=== PATIENT | male | born 1945 | race Caucasian/White ===

== ENCOUNTER → 2023-05-14 10:54 | Outpatient (REF) | payer MEDICARE, OTHER, SELFPAY | LOC: DHCBS MAIN 10:54 | PROVIDERS: ATTENDING PHYSICIAN Internal Medicine Cardiovascular Disease; FAMILY PHYSICIAN Family Medicine | DX: I42.8 Other cardiomyopathies (principal) | CPT/HCPCS: 93306 ==

== ENCOUNTER 2025-01-02 15:17 | Inpatient (IN) | payer MEDICARE, OTHER, SELFPAY ==
[2025-01-02] VITALS (7 sets, daily range): BP systolic 114–143; BP diastolic 65–83; BMI 26.1; BMI 25.2
[2025-01-02 11:03] LABS: Hematocrit 38.3 % (39.0-52.0); Hemoglobin 12.9 g/dL (13.0-18.0); Mean Corp Hgb Conc. 33.7 g/dL (33.0-37.0); Mean Corpuscular Volume 89.1 fL (80.0-94.0); Nucleated Red Blood Cells % 0 % (-); Platelet Count 145 10^3/uL (130-400); Red Cell Dist. Width 13.2 % (11.5-14.5)
[2025-01-02 11:04] LABS: Urine Character Clear (Clear)
--- NOTE | 2025-01-02 11:04 | ED.GENMED ---
History of Present Illness
<Ana Maria Mccarthy PA-C - Last Filed: 01/02/25 16:01>
General
Chief Complaint: Abdominal Symptoms
Source: patient
Exam Limitations: none
Time Seen by Provider: 01/02/25 10:36
History of Present Illness
History of Present Illness:
79yoM with a history of coronary artery disease, CHF, hypertension, hyperlipidemia, and CKD presenting for evaluation of decreased urination. Patient has been having 'digestive issues' for the past year with diarrhea, gas, and intermittent
abdominal discomfort. He has lost about 15 pounds in the past few months. He has been seen by [facility] gastroenterology for this and has a colonoscopy scheduled in February. He takes Imodium every other day which does seem to help. Over the
past 24 hours, patient notes decreased urination. He reports having the urge to urinate but is only able to urinate in small amounts at a time. He is also having associated dysuria. He has no abdominal pain currently. He denies any fevers,
chills, flank pain, vomiting, hematuria, hematochezia.
Phy Exam
<Ana Maria Mccarthy PA-C - Last Filed: 01/02/25 16:01>
General Physical Exam
General Presentation: well appearing and no apparent distress
General Skin: warm and dry
General Habitus: normal and elderly
General Mental: alert
ENT Exam
ENT Exam: normocephalic
Cardiovascular Exam
Cardiovascular Exam: regular rate/rhythm
Pulmonary Exam
Pulmonary Exam: lungs clear, no respiratory distress, no rales, no crackles, no rhonchi and no wheezing
Gastrointestinal Exam
Gastrointestinal Exam: non tender, soft and non distended
Neurological Exam
Neurological Exam: alert
[place] Coma Scale
Eye Opening: Spontaneous
Verbal Response: Oriented
Motor Response: Obeys Commands
GCS Total Score: 15
Skin Exam
Skin Exam: normal color and warm/dry
Psychiatric Exam
Psychiatric Exam: normal mood/affect
Course
<Ana Maria Mccarthy PA-C - Last Filed: 01/02/25 16:01>
Orders/Labs/Results
Orders:
Orders
01/02/25 10:53
Complete Blood Count/With Diff Urgent
Comprehensive Metabolic Panel Urgent
Magnesium Urgent
TSH Urgent
Comment: ADD ON
Urinalysis Reflex To Culture Urgent
Date Specimen was Collected: 01/02/25
Time Specimen was Collected: 10:50
Urine Microscopic Reflex Cult Urgent
Urine Culture Urgent
LUNA Source: U
Specimen Description:
Date Specimen was Collected: 01/02/25
Time Specimen was Collected: 10:50
01/02/25 11:19
CT Abd/pelvis W Iv Cont Urgent
Comment:
Reason For Exam: UTI symptoms, SIRS criteria, diarrhea
01/02/25 11:20
Add On- LAB Urgent
Tests Added?: TSH
Lactic Acid Urgent
01/02/25 13:23
Piperacillin/Tazo 4.5 Gram [Zosyn] 4.5 gram in 100 ml IV NOW
01/02/25 13:55
Blood Culture Q30M
LUNA Source: Blood/Venous
Specimen Description:
01/02/25 14:22
Admit/Transfer Patient As Directed
Co-Sign Provider:
Level of Care: Inpatient admission
Assign to:: Telemetry
Physician / Group: feli abernathy
Diagnosis: sepsis divertic w/ perf/abcess, cystitis, uti, hepatic abs vs mass
Reason for Telemetry: Arrhythmia
Date to Stop Telemetry: 01/05/25
Time to Stop Telemetry: 11:00
Reason for Hospitalization: sepsis divertic w/ perf/abcess, cystitis, uti, hepatic abs vs mass
Expected length of stay greater than two midnights?: Yes
ELOS- Estimated Length of Stay in days: 5
I certify the patient meets the requirements for IP care: Yes
SURGICAL CONSULT Routine
Consulting Provider: Ricardo Smith
Was physician already notified: Yes
Reason for consult: Perfect diverticulitis with abscess/[place] vesicular fistula/cystitis/UTI
01/02/25 14:24
Blood Culture Q30M
LUNA Source: Blood/Venous
Specimen Description:
01/02/25 14:25
Code Status As Directed
Resuscitation Status: Full Code
01/02/25 14:28
PRN Pain Medication Management As Directed
May give lesser potent ordered pain med per pt: Yes
preference::
Protocol:: Medication orders for pain may be administered in a
manner that supports deferring to patient preference
when the pt is:
- Requesting an ordered lesser potent pain medication.
Least to most potent pain medications are defined
as: acetaminophen < NSAID < tramadol < opioids
(morphine, oxycodone, hydromorphone).
- Requesting a lesser dose of the same medication IF
ORDERED.
- Requesting a less intrusive route of administration
if both routes are prescribed by the provider (PO <
IV).
01/02/25 14:36
INFECTIOUS DISEASE CONSULT Routine
Consulting Provider: Geno Cotton
Was physician already notified: Yes
Reason for consult: divetic w/ perf/abces/ fistula, uti cystitis
01/05/25 11:00
DC Protocol for Telemetry ONCE
Abnormal Lab Results
01/02/25
10:53
WBC 21.4 H 10^3/uL
(4.8-10.8)
RBC 4.30 L 10^6/uL
(4.70-6.10)
Hgb 12.9 L g/dL
(13.0-18.0)
Hct 38.3 L %
(39.0-52.0)
MPV 12.6 H fL
(7.4-10.4)
Abs Immat Gran (auto) 0.1 H 10^3/uL
(0-0.05)
Absolute Neuts (auto) 18.1 H 10^3/uL
(1.4-6.5)
Absolute Monos (auto) 1.8 H 10^3/uL
(0.1-0.6)
Neutrophils % 84.2 H %
(42.2-75.2)
Lymphocytes % 6.1 L %
(20.5-51.1)
Sodium 134 L mmol/L
(135-145)
Glucose 145 H mg/dl
(70-99)
Total Bilirubin 1.7 H mg/dl
(0.2-1.3)
Ur Occult Blood Reflex 4+ A
(Negative)
Leukocyte Esterase Rfl 3+ A
(Negative)
Urine RBC 40-50 A /HPF
(0-2)
Urine WBC (Reflex) >100 A /HPF
(0-5)
Urine Bacteria (Reflex) Moderate A
(Negative)
Urine Albumin (Reflex) 3+ A
(Neg - Trace)
01/02/25 10:53
01/02/25 10:53
Vital Signs
Initial and Last Documented VS:
Initial Vital Signs
Temp Pulse Resp BP Pulse Ox
98.2 F 102 16 143/83 97
01/02/25 10:12 01/02/25 10:12 01/02/25 10:12 01/02/25 10:12 01/02/25 10:12
Last Documented Vital Signs
Temp Pulse Resp BP Pulse Ox
98.8 F 65 18 132/78 99
01/02/25 15:29 01/02/25 15:29 01/02/25 15:29 01/02/25 15:29 01/02/25 15:29
<Luis Ruiz, DO - Last Filed: 01/02/25 15:43>
Orders/Labs/Results
Orders:
Orders
01/02/25 10:53
Complete Blood Count/With Diff Urgent
Comprehensive Metabolic Panel Urgent
Magnesium Urgent
TSH Urgent
Comment: ADD ON
Urinalysis Reflex To Culture Urgent
Date Specimen was Collected: 01/02/25
Time Specimen was Collected: 10:50
Urine Microscopic Reflex Cult Urgent
Urine Culture Urgent
LUNA Source: U
Specimen Description:
Date Specimen was Collected: 01/02/25
Time Specimen was Collected: 10:50
01/02/25 11:19
CT Abd/pelvis W Iv Cont Urgent
Comment:
Reason For Exam: UTI symptoms, SIRS criteria, diarrhea
01/02/25 11:20
Add On- LAB Urgent
Tests Added?: TSH
Lactic Acid Urgent
01/02/25 13:23
Piperacillin/Tazo 4.5 Gram [Zosyn] 4.5 gram in 100 ml IV NOW
01/02/25 13:55
Blood Culture Q30M
LUNA Source: Blood/Venous
Specimen Description:
01/02/25 14:22
Admit/Transfer Patient As Directed
Co-Sign Provider:
Level of Care: Inpatient admission
Assign to:: Telemetry
Physician / Group: feli abernathy
Diagnosis: sepsis divertic w/ perf/abcess, cystitis, uti, hepatic abs vs mass
Reason for Telemetry: Arrhythmia
Date to Stop Telemetry: 01/05/25
Time to Stop Telemetry: 11:00
Reason for Hospitalization: sepsis divertic w/ perf/abcess, cystitis, uti, hepatic abs vs mass
Expected length of stay greater than two midnights?: Yes
ELOS- Estimated Length of Stay in days: 5
I certify the patient meets the requirements for IP care: Yes
SURGICAL CONSULT Routine
Consulting Provider: Ricardo Smith
Was physician already notified: Yes
Reason for consult: Perfect diverticulitis with abscess/[place] vesicular fistula/cystitis/UTI
01/02/25 14:24
Blood Culture Q30M
LUNA Source: Blood/Venous
Specimen Description:
01/02/25 14:25
Code Status As Directed
Resuscitation Status: Full Code
01/02/25 14:28
PRN Pain Medication Management As Directed
May give lesser potent ordered pain med per pt: Yes
preference::
Protocol:: Medication orders for pain may be administered in a
manner that supports deferring to patient preference
when the pt is:
- Requesting an ordered lesser potent pain medication.
Least to most potent pain medications are defined
as: acetaminophen < NSAID < tramadol < opioids
(morphine, oxycodone, hydromorphone).
- Requesting a lesser dose of the same medication IF
ORDERED.
- Requesting a less intrusive route of administration
if both routes are prescribed by the provider (PO <
IV).
01/02/25 14:36
INFECTIOUS DISEASE CONSULT Routine
Consulting Provider: Geno Cotton
Was physician already notified: Yes
Reason for consult: divetic w/ perf/abces/ fistula, uti cystitis
01/05/25 11:00
DC Protocol for Telemetry ONCE
Abnormal Lab Results
01/02/25
10:53
WBC 21.4 H 10^3/uL
(4.8-10.8)
RBC 4.30 L 10^6/uL
(4.70-6.10)
Hgb 12.9 L g/dL
(13.0-18.0)
Hct 38.3 L %
(39.0-52.0)
MPV 12.6 H fL
(7.4-10.4)
Abs Immat Gran (auto) 0.1 H 10^3/uL
(0-0.05)
Absolute Neuts (auto) 18.1 H 10^3/uL
(1.4-6.5)
Absolute Monos (auto) 1.8 H 10^3/uL
(0.1-0.6)
Neutrophils % 84.2 H %
(42.2-75.2)
Lymphocytes % 6.1 L %
(20.5-51.1)
Sodium 134 L mmol/L
(135-145)
Glucose 145 H mg/dl
(70-99)
Total Bilirubin 1.7 H mg/dl
(0.2-1.3)
Ur Occult Blood Reflex 4+ A
(Negative)
Leukocyte Esterase Rfl 3+ A
(Negative)
Urine RBC 40-50 A /HPF
(0-2)
Urine WBC (Reflex) >100 A /HPF
(0-5)
Urine Bacteria (Reflex) Moderate A
(Negative)
Urine Albumin (Reflex) 3+ A
(Neg - Trace)
01/02/25 10:53
01/02/25 10:53
Vital Signs
Initial and Last Documented VS:
Initial Vital Signs
Temp Pulse Resp BP Pulse Ox
98.2 F 102 16 143/83 97
01/02/25 10:12 01/02/25 10:12 01/02/25 10:12 01/02/25 10:12 01/02/25 10:12
Last Documented Vital Signs
Temp Pulse Resp BP Pulse Ox
98.8 F 65 18 132/78 99
01/02/25 15:29 01/02/25 15:29 01/02/25 15:29 01/02/25 15:29 01/02/25 15:29
<Ana Maria Mccarthy PA-C - Last Filed: 01/02/25 16:01>
MDM/Problems Addressed
Differential Diagnosis Includes:
79yoM here with urinary urgency and decreased urination x 24 hours. Occurs in context of diarrhea/abdominal symptoms x 1 year with weight loss. HR 102 on arrival. Temp normal. He is well appearing in no distress. No signs of peritonitis on abdominal
exam. Differential diagnosis includes but is not limited to: UTI, kidney stone, prostatitis, urinary retention, DE, dehydration
Initial ED plan: Check CBC, CMP, and UA. Bladder scan done by nursing staff prior to initial exam is 45cc.
<Ana Maria Mccarthy PA-C - Last Filed: 01/02/25 16:01>
*Pulse Oximetry
SaO2: 97
Oxygen Mode of Delivery: Room air
Patient hypoxic: no
*Critical Care Note
Total Time (30-74mins, 75-104mins- exclusive of procedures): Not Applicable
<Ana Maria Mccarthy PA-C - Last Filed: 01/02/25 16:01>
Update Note
Update Note:
Labs reveal a significant leukocytosis with a WBC of 21.4 with a left shift. UA with >100 WBC and moderate bacteria. Given degree of leukocytosis, CT abdomen added. CT shows findings suggestive of focally perforated sigmoid diverticulitis with
developing abscess. Abscess extends into bladder with evidence of developing colovesicular fistula. There are also multiple hepatic lesions which may be abscesses vs. metastases and MRI is recommended. Blood cultures and IV Zosyn ordered.
Patient admitted for further management.
ED Attending Note
<Ana Maria Mccarthy PA-C - Last Filed: 01/02/25 16:01>
-
Portions of this chart may have been created with voice recognition software.� Occasional wrong word or��sound alike� substitutions may have occurred due to the inherent limitations of voice recognition software.
<Luis Ruiz, DO - Last Filed: 01/02/25 15:43>
ED Attending Note
Patient seen and examined by attending physician: Yes
ED Attending Note:
I have reviewed and with history and treatment plan. My exam revealed
79-year-old male in minimal distress. Abdomen tender to palpation. CT scan revealing sigmoid diverticulitis with developing pericolonic abscess measuring 4.8 cm. 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 IV Zosyn ordered. Colorectal surgery consulted.
Discharge Plan
Departure
Patient Disposition: Admit
Date of Disposition: 01/02/25
Time of Disposition: 13:41
Presentation/result/management discussed w/ accepting MD/DO: Hospitalist
Discharge Problem:
Diverticulitis of intestine with abscess
Interventions
Interventions:
*Risk Screen - Suicide Last Done: 01/02/25 10:12
*General Assessment Last Done: 01/02/25 11:11
*Neglect/Abuse Screening Last Done: 01/02/25 10:12
*Nursing Disposition Last Done: 01/02/25 15:29
WD-Nqulak-Aznbpifkey Assessment Last Done: 01/02/25 11:11
Discharge Date and Time
Discharge Date/Time: 01/02/25 15:44
[2025-01-02 11:17] LABS: Urine Squamous Cell 0-2 /LPF (Few); Urine White Cell >100 /HPF (0-5)
[2025-01-02 11:18] LABS: ALT (SGPT) 14 U/L (0-50); AST (SGOT) 19 U/L (17-59); Albumin 3.9 g/dl (3.5-5.0); Alkaline Phosphatase 99 U/L (38-126); Blood Urea Nitrogen 14 mg/dl (9-20); Calcium 9.5 mg/dl (8.4-10.2); Carbon Dioxide 23 mmol/L (22-30); Chloride 103 mmol/L (98-107); Estimated Creatinine Clearance -6 ml/min; Glucose 145 mg/dl (70-99); Magnesium 1.8 mg/dl (1.6-2.3); Potassium 3.8 mmol/L (3.5-5.1); Sodium 134 mmol/L (135-145); Total Protein 7.2 g/dl (6.3-8.2); Urine Red Blood Cell 40-50 /HPF (0-2); eGFR > 60.00
[2025-01-02 12:44] LABS: TSH 1.44 uIU/ml (0.47-4.68)
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
[2025-01-02] MEDS: ZOSYN 100 IV (14:26)
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
--- NOTE | 2025-01-02 14:40 | CON.ID ---
Consultation
-
Date/Time Consultation Requested: January 02, 2025
Date/Time Consultation Performed: January 02, 2025
Requesting Provider: STELLA Hussein
Performing Provider: Dr. Geno Cotton
Reason for Consultation: Perforated diverticulitis
Chief Complaint / Past History
Chief Complaint
painful urination
History of Present Illness
79 year old male with history of nonischemic cardiomyopathy status post ICD placement, hypothyroidism who presents to the ER today due to dysuria, urinary urgency, minimal urine output. Patient reports about 6-month or longer history of GI issues
with passing gas and loose stools, but mostly gas. Per daughter for the past 3 months, he has not had formed bowel movements. He will pass gas and then spurts of stool. No abdominal pain except for the past week where he has discomfort lower
abdomen. No blood in the stool. He has lost about 10 pounds unintentionally over the past 3 months. He is scheduled for a colonoscopy next month at [facility]. Of note patient never had colon cancer screening. For the past week, he developed
dysuria and urinary urgency. Over the past 24 hours, urine output minimal despite the urinary urgency. He denies foamy urine. No stool particulates in the urine. No fevers or chills. In ED, white count 21.4. Urine analysis 3+ leukocyte
esterase, more than 100 red blood cells. CAT scan abdomen and pelvis shows focally perforated sigmoid diverticulitis with 4.8 cm abscess extending into the urinary bladder concerning for developing colovesicular fistula, multiple hypodense hepatic
lesions, abscesses versus metastases. He is currently on Zosyn. 8
Past History
Additional Past Medical History:
Hypothyroidism
Nonischemic cardiomyopathy s/p ICD placement
Dyslipidemia
Vertebral compression fracture
CKD2
Back surgery
Right knee fracute repair
Allergy History:
No Known Allergies Allergy (Verified 01/02/25 10:12)
Medications Reviewed: Yes
Current Antibiotics:
Zosyn d1
Social History
Tobacco: Former Smoker
Alcohol: Former
Drug: None
Review of Systems
Review of Systems
General: Change in Appetite; Negative Fever or Chills
HEENT: Negative Sinus Problems, Headache or Pharyngitis
Cardiovascular: Negative Chest Pain or Dyspnea
Respiratory: Negative Dyspnea or Cough
Gasteroenterology: Weight Loss; Negative Nausea or Vomiting
Genital / Urological: Dysuria; Negative Hematuria or Flank Pain
Endocrine: Weakness and Fatigue
Neurological: Negative Dizziness
All systems: All other systems were reviewed and were negative
Vital Signs
Temp Pulse Resp BP Pulse Ox
98.2 F 102 16 120/67 97
01/02/25 10:12 01/02/25 10:12 01/02/25 10:12 01/02/25 11:00 01/02/25 11:05
Physical Exam
Physical Exam
Constitutional: No Acute Distress and Comfortable
Eyes: No Conjunctival Hemorrhage and Sclera Anicteric
Cardiovascular: Regular Rate, S1/S2 and Other (ICD no erythema/induration)
Pulmonary: Clear
Gastrointestinal: Soft, Non Tender, Non Distended and Normal Bowel Sounds
Genito-Urinary: Negative Suprapubic Tenderness or CVA Tenderness
Extremities: Negative Edema
Neurological: AO x 3
Lab / Diagnostic Study Results
01/02/25 10:53
01/02/25 10:53
Abs Immat Gran (auto) 0.1 10^3/uL (0-0.05) H 01/02/25 10:53
Absolute Neuts (auto) 18.1 10^3/uL (1.4-6.5) H 01/02/25 10:53
Absolute Lymphs (auto) 1.3 10^3/uL (1.2-3.4) 01/02/25 10:53
Absolute Monos (auto) 1.8 10^3/uL (0.1-0.6) H 01/02/25 10:53
Absolute Basos (auto) 0.1 10^3/uL (0-0.2) 01/02/25 10:53
Immature Gran % 0.4 % (0-0.5) 01/02/25 10:53
Neutrophils % 84.2 % (42.2-75.2) H 01/02/25 10:53
Lymphocytes % 6.1 % (20.5-51.1) L 01/02/25 10:53
Monocytes % 8.6 % (1.7-9.3) 01/02/25 10:53
Eosinophils % 0.2 % (0-6) 01/02/25 10:53
Basophils % 0.5 % (0-2) 01/02/25 10:53
Lactic Acid 1.1 mmol/L (0.7-2.0) 01/02/25 11:20
Ur Squamous Epith Cells 0-2 /LPF (Few) 01/02/25 10:53
Microbiology Results
Micro:
01/02/25 14:24 Blood Culture - Pending
Blood/Venous
01/02/25 13:55 Blood Culture - Pending
Blood/Venous
01/02/25 10:53 Urine Culture - Pending
Urine
01/02/25 CT a/p: Findings of focally perforated sigmoid diverticulitis with a developing pericolonic abscess measuring up to 4.8 cm. This abscess extends into the superior wall of the urinary bladder and likely represents a developing colovesicular
fistula with findings of cystitis. There are multiple ill-defined, mildly hypodense hepatic lesions which measure up to 2.8 cm in the superior aspect of the right hepatic lobe. Given the above findings of diverticulitis these represent developing
hepatic abscesses, however metastasis are also possible.
Assessment / Plan
# Perforated sigmoid with abscess
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
# Leukocytosis
# Hepatic lesions -?abscesses vs metastasis - pt never had colon cancer screening
# Weight loss, 6 month h/o GI symptoms passing gas and loose stools
- For MRI abd per hospitalist
- Consider biopsy liver lesions
- Await blood cx and ucx.
- Continue Zosyn.
Conditions present on admission:
Hypothyroidism
Nonischemic cardiomyopathy s/p ICD placement
Dyslipidemia
Vertebral compression fracture
CKD2
Back surgery
Right knee fracture repair
--- NOTE | 2025-01-02 15:50 | PTCARENOTE ---
01/02- Patient transferred and oriented to unit without issue. AAOX3, Independent. Patient denies any pain or distress at this time. Telemetry #44- currently NSR with HR=72. Skin CDI. Abd distended, firm but not tender. +BSX4. Educated patient on
Diverticulitis and Complicated Diverticulitis as well as questions for the Physicians during his stay. He verbalized understanding. Denies any current needs.
[2025-01-02] MEDS: NSS 1000 IV (16:25)
[2025-01-02] MEDS: HEPARIN 5000 UNITS SC (20:23)
[2025-01-02] MEDS: ZOSYN 50 IV (20:25)
[2025-01-02] MEDS: COREG 6.25 MG PO (20:25)
[2025-01-03] MEDS: ZOSYN 50 IV ×4 (01:39→20:01)
[2025-01-03 03:00] VITALS: BP 108/69
[2025-01-03 04:42] VITALS: BMI 26.1
[2025-01-03] MEDS: SYNTHROID 50 MCG PO (05:48)
[2025-01-03 05:54] VITALS: BMI 25.3
[2025-01-03 07:00] VITALS: BP 116/69
[2025-01-03] MEDS: PROTONIX 40 MG PO (08:12)
[2025-01-03] MEDS: HEPARIN 5000 UNITS SC ×2 (08:13→19:57)
[2025-01-03] MEDS: COREG 6.25 MG PO ×2 (08:32→20:00)
--- NOTE | 2025-01-03 08:40 | W.PN.CRS1 ---
Today's Communication / Plan
-
MRI to look at liver.
Assessment/Plan
-
Sigmoid diverticulitis with associated abscess, question of fistula to bladder, and liver lesions of unclear etiology. Malignancy a possibility (CEA pending).
1. MRI today to evaluate liver lesions.
2. continue npo for now as patient admits to nausea/queasiness.
3. antibiotics per ID.
4. today's bloodwork pendng.
Subjective Data
Subjective Data
Date of Service: January 03, 2025
Feels a little 'queasy'. Denies pain.
Objective Data
-
Vital Signs
Temp Pulse Resp BP Pulse Ox
98.6 F 71 16 116/69 99
01/03/25 03:00 01/03/25 08:32 01/03/25 03:00 01/03/25 08:32 01/03/25 03:00
Intake & Output
01/02/25 01/03/25 01/04/25
06:59 06:59 06:59
Intake Total 760 / 760
Output Total 100 / 100
Balance 660 / 660
Intake:
IV fluids (Total) 660 / 660
IV piggybacks 100 / 100
Output:
Urine, Voided 100 / 100
Other:
Number of approximated MODERATE 1
amounts of urine
Physical Exam
-
General: No Acute Distress
Chest: Clear
Cardiovascular: Regular Rate & Rhythm
Abdomen: Tender (minimal lower abdominal)
[2025-01-03 09:24] LABS: Prealbumin (Transthyretin) 6.2 mg/dl (17.6-36.0)
[2025-01-03 09:33] LABS: C-Reactive Protein 211.80 mg/L (0.0-10.00)
[2025-01-03 09:36] LABS: ALT (SGPT) 12 U/L (0-50); AST (SGOT) 17 U/L (17-59); Albumin 3.3 g/dl (3.5-5.0); Alkaline Phosphatase 97 U/L (38-126); Blood Urea Nitrogen 12 mg/dl (9-20); Calcium 9.0 mg/dl (8.4-10.2); Carbon Dioxide 25 mmol/L (22-30); Chloride 104 mmol/L (98-107); Estimated Creatinine Clearance 69 ml/min; Glucose 73 mg/dl (70-99); Potassium 3.9 mmol/L (3.5-5.1); Sodium 136 mmol/L (135-145); Total Protein 6.4 g/dl (6.3-8.2); eGFR > 60.00
[2025-01-03 09:49] LABS: CEA 2.71 ng/ml
[2025-01-03 10:16] LABS: Hematocrit 35.2 % (39.0-52.0); Hemoglobin 11.5 g/dL (13.0-18.0); Mean Corp Hgb Conc. 32.7 g/dL (33.0-37.0); Mean Corpuscular Volume 90.5 fL (80.0-94.0); Nucleated Red Blood Cells % 0 % (-); Red Cell Dist. Width 13.4 % (11.5-14.5)
--- NOTE | 2025-01-03 11:00 | W.PN.ID1 ---
Date of Service
Date of Service: January 03, 2025
Today's Communication
Continue Zosyn
Assessment / Plan
# Perforated sigmoid with abscess
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
# Leukocytosis
# Hepatic lesions -?abscesses vs metastasis - pt never had colon cancer screening
# Weight loss, 6 month h/o GI symptoms passing gas and loose stools
- For MRI abd per hospitalist
- Consider biopsy liver lesions
- Await blood cx.
- Ucx E. coli
- Continue Zosyn.
Conditions present on admission:
Hypothyroidism
Nonischemic cardiomyopathy s/p ICD placement
Dyslipidemia
Vertebral compression fracture
CKD2
Back surgery
Right knee fracture repair
Chief Complaint
-: Other
Subjective / Review of Systems
No diarrhea today. Dysuria and flatus improving.
Vital Signs / Physical Exam
Vital Signs
Vital Signs
Temp Pulse Resp BP Pulse Ox
97.9 F 71 18 116/69 95
01/03/25 07:00 01/03/25 08:32 01/03/25 07:00 01/03/25 08:32 01/03/25 07:00
Physical Exam
Constitutional: No Acute Distress
Eyes: Sclera Anicteric
Pulmonary: Clear
Gastrointestinal: Non Tender, Non Distended and Normal Bowel Sounds
Genito-Urinary: Negative CVA Tenderness
Extremities: Negative Edema
Neurological: AO x 3
Objective Data
Lab Data
Lab Results
01/03/25 07:30
01/03/25 07:30
Estimated Creat Clear 69 ml/min 01/03/25 07:30
Lactic Acid 1.1 mmol/L (0.7-2.0) 01/02/25 11:20
Total Bilirubin 1.3 mg/dl (0.2-1.3) 01/03/25 07:30
AST 17 U/L (17-59) 01/03/25 07:30
ALT 12 U/L (0-50) 01/03/25 07:30
Alkaline Phosphatase 97 U/L (38-126) 01/03/25 07:30
C-Reactive Protein 211.80 mg/L (0.0-10.00) H 01/03/25 07:30
Most recent labs reviewed.
Micro Results:
01/02/25 10:53 Urine Culture - Preliminary
Urine Escherichia coli
01/02/25 14:24 Blood Culture - Pending
Blood/Venous
01/02/25 13:55 Blood Culture - Pending
Blood/Venous
01/02/25 CT a/p: Findings of focally perforated sigmoid diverticulitis with a developing pericolonic abscess measuring up to 4.8 cm. This abscess extends into the superior wall of the urinary bladder and likely represents a developing colovesicular
fistula with findings of cystitis. There are multiple ill-defined, mildly hypodense hepatic lesions which measure up to 2.8 cm in the superior aspect of the right hepatic lobe. Given the above findings of diverticulitis these represent developing
hepatic abscesses, however metastasis are also possible.
[2025-01-03 11:04] VITALS: BMI 25.3
[2025-01-03 11:05] VITALS: BP 113/61
--- NOTE | 2025-01-03 14:16 | W.PN.HOSP.TC ---
Today's Communication/Plan
-
MRI abd
abx
Bx depending on findings
CRS and ID recs
Assessment / Plan
Assessment / Plan
Physical Exam
General: Comfortable and Conversant; No Pain, Fever or Chills
HEENT: NormoCephalic, Anicteric, Moist mucous membranes, PERRLA, [place] Conjunctivae and No Ptosis
Respiratory: Clear; No Wheezes, Rales or Rhonchi
Cardiac: S1/S2, Regular Rhythm and Other (Defibrillator present left upper chest wall); No Murmur, Rub, Gallop or Peripheral Edema
Breast: Deferred by me
GI: Soft, Non Tender, Non Distended, Normal Bowel Sounds and No Hepatosplenomegaly
Genito-urinary: Deferred by me
Musculoskeletal: No Clubbing, No Cyanosis and No Edema
Skin: Warm and Dry; No Rash or Jaundice
Neuro: AO x 3, No Motor Deficits, Nonfocal/grossly intact, Cranial Nerves Intact and No Sensory Deficits; No Slurred Speech, Facial Droop, Tremors or Sedated
Psych: Calm
#Sepsis
#perforated Diverticulitis with developing abscess as well as possible Colovesicular fistula
-F/u blood cultures and urine cultures
-MRI abdomen with IV contrast
-colorectal surgery recs
-ID recs
-Bx if needed after MRI
-Abx
-Fluids
-N.p.o.
-Follow CBC, CMP
#Hepatic lesions concerning for hepatic abscesss versus mets on CT
-Will check MRI abdomen with IV contrast
-Plan as above
#UTI with cystitis
-possibly 2/2 to fistula
-IV Zosyn
- Follow urine culture
# Defibrillator Med[employer]onic placed 2021 MRI conditional [id number], model [id number]
Hold Entresto, spironolactone
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
#CAD
#History of PVCs
-Follows with [facility] cardiology
2D echo 05/14/2023: EF 35-40%, global hypokinesis, dilated left ventricle, septal contractility abnormality, trace aortic regurg, ICD wire present
#Hypothyroidism
-Continue Synthroid 50 mcg p.o. daily
# HTN
Continue Coreg 6.25 mg twice daily with hold parameters
Hold spironolactone 12.5 mg daily
#HLD
Hold atorvastatin 20 mg at bedtime
#History of PVCs
#Former smoker quit 1999
#Former daily drinker quit 1999
Total time spent on today's encounter was 55 minutes which included time spent in counseling the patient/family regarding diagnosis and treatment plan as listed above, goals of care, and symptom management. Case was discussed with nursing staff,
specialists, and care coordinators/case management. All labs and imaging personally reviewed by me. Remainder the time spent in detailed review of previous records, lab data, imaging, and other medical provider documentation.
Anticipated Discharge: > 48 hours
Subjective/Interval History
-
Date of Service: January 03, 2025
no acute events
MRI pending
Objective Data
-
Labs:
Laboratory Results
01/03/25
07:30
WBC 20.0 H
Hgb 11.5 L
Hct 35.2 L
Plt Count
Sodium 136
Potassium 3.9
Chloride 104
Carbon Dioxide 25
BUN 12
Creatinine 0.9
Glucose 73
Calcium 9.0
Total Bilirubin 1.3
AST 17
ALT 12
Alkaline Phosphatase 97
Vital Signs:
Vital Signs
Temp Pulse Resp BP Pulse Ox
98.1 F 69 16 113/61 95
01/03/25 11:05 01/03/25 11:05 01/03/25 11:05 01/03/25 11:05 09/23/25 11:05
I&O
01/02/25 01/03/25 01/04/25
06:59 06:59 06:59
Intake Total 760 / 760
Output Total 100 / 100
Balance 660 / 660
Review of Systems
-
History Source: Patient
All other systems: Not reviewed unless documented
Data Reviewed
-
CT Scan: Report Reviewed by me
Labs: Labs Reviewed by me
[2025-01-03 15:16] VITALS: BP 108/68
--- NOTE | 2025-01-03 16:10 | CM ---
manager technical services reviewed patient's chart and met with patient and patient lives with his spouse in a 2 story home, patient is independent with adl's and ambulation, no dme, home when stable. No needs.
PCP: Dr Morales
Pharmacy: [facility]
[2025-01-03 19:42] VITALS: BP 122/65
[2025-01-03 23:38] VITALS: BP 101/60
[2025-01-04] VITALS (8 sets, daily range): BP systolic 82–127; BP diastolic 48–68; BMI 25.0
[2025-01-04] MEDS: ZOSYN 50 IV ×4 (01:49→22:14)
[2025-01-04] MEDS: SYNTHROID 50 MCG PO (06:05)
[2025-01-04] MEDS: HEPARIN 5000 UNITS SC (07:58)
[2025-01-04] MEDS: COREG 6.25 MG PO ×2 (07:58→19:43)
[2025-01-04 09:07] LABS: Hematocrit 36.2 % (39.0-52.0); Hemoglobin 12.1 g/dL (13.0-18.0); Mean Corp Hgb Conc. 33.4 g/dL (33.0-37.0); Mean Corpuscular Volume 90.7 fL (80.0-94.0); Nucleated Red Blood Cells % 0 % (-); Red Cell Dist. Width 13.2 % (11.5-14.5)
[2025-01-04 10:07] LABS: ALT (SGPT) 12 U/L (0-50); AST (SGOT) 17 U/L (17-59); Albumin 3.4 g/dl (3.5-5.0); Alkaline Phosphatase 91 U/L (38-126); Blood Urea Nitrogen 14 mg/dl (9-20); Calcium 9.1 mg/dl (8.4-10.2); Carbon Dioxide 22 mmol/L (22-30); Chloride 105 mmol/L (98-107); Estimated Creatinine Clearance 69 ml/min; Glucose 61 mg/dl (70-99); Potassium 4.1 mmol/L (3.5-5.1); Sodium 137 mmol/L (135-145); Total Protein 6.5 g/dl (6.3-8.2); eGFR > 60.00
[2025-01-04] MEDS: ZOSYN IV (10:24)
--- NOTE | 2025-01-04 12:08 | W.PN.ID1 ---
Date of Service
Date of Service: January 04, 2025
Today's Communication
Continue Zosyn.
Assessment / Plan
# Perforated sigmoid with abscess
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
# Leukocytosis - trending down
# Hepatic lesions -?abscesses vs metastasis - pt never had colon cancer screening
# Weight loss, 6 month h/o GI symptoms passing gas and loose stools
- MRI abd pending
- Consider biopsy liver lesions pending MRI result.
- blood cx's neg to date
- Ucx E. coli
- Continue Zosyn d3.
- Follow wbc.
Conditions present on admission:
Hypothyroidism
Nonischemic cardiomyopathy s/p ICD placement
Dyslipidemia
Vertebral compression fracture
CKD2
Back surgery
Right knee fracture repair
Chief Complaint
-: Other
Subjective / Review of Systems
Feeling better. No urine symptoms. Less flatus, stool more formed.
Vital Signs / Physical Exam
Vital Signs
Vital Signs
Temp Pulse Resp BP Pulse Ox
97.8 F 62 18 120/67 98
01/04/25 07:00 01/04/25 07:00 01/04/25 07:00 01/04/25 07:00 01/04/25 07:00
Physical Exam
Constitutional: No Acute Distress
Eyes: Sclera Anicteric
Pulmonary: Clear
Gastrointestinal: Non Tender, Non Distended and Normal Bowel Sounds
Genito-Urinary: Negative CVA Tenderness
Extremities: Negative Edema
Neurological: AO x 3
Objective Data
Lab Data
Lab Results
01/04/25 08:13
01/04/25 08:13
Estimated Creat Clear 69 ml/min 01/04/25 08:13
Lactic Acid 1.1 mmol/L (0.7-2.0) 01/02/25 11:20
Total Bilirubin 1.2 mg/dl (0.2-1.3) 01/04/25 08:13
AST 17 U/L (17-59) 01/04/25 08:13
ALT 12 U/L (0-50) 01/04/25 08:13
Alkaline Phosphatase 91 U/L (38-126) 01/04/25 08:13
C-Reactive Protein 211.80 mg/L (0.0-10.00) H 01/03/25 07:30
Most recent labs reviewed.
Micro Results:
01/02/25 10:53 Urine Culture - Final
Urine Escherichia coli
01/02/25 14:24 Blood Culture - Preliminary
Blood/Venous No Growth in 24 hours- Final report to follow
01/02/25 13:55 Blood Culture - Preliminary
Blood/Venous No Growth in 24 hours- Final report to follow
01/02/25 CT a/p: Findings of focally perforated sigmoid diverticulitis with a developing pericolonic abscess measuring up to 4.8 cm. This abscess extends into the superior wall of the urinary bladder and likely represents a developing colovesicular
fistula with findings of cystitis. There are multiple ill-defined, mildly hypodense hepatic lesions which measure up to 2.8 cm in the superior aspect of the right hepatic lobe. Given the above findings of diverticulitis these represent developing
hepatic abscesses, however metastasis are also possible.
--- NOTE | 2025-01-04 13:45 | W.PN.CRS1 ---
Today's Communication / Plan
-
flex sig
mri abdomen
Assessment/Plan
-
Sigmoid diverticulitis with associated abscess, question of fistula to bladder, and liver lesions of unclear etiology. Malignancy a possibility (CEA pending).
1. MRI today to evaluate liver lesions.
2. Continue npo.
3. Antibiotics per ID.
4. CEA = 2.71.
5. Flexible sigmoidoscopy to evaulate the area by Dr. Linder. Plans to follow.
Subjective Data
Subjective Data
Date of Service: January 04, 2025
Patient states he has no new complaints.
Objective Data
-
Vital Signs
Temp Pulse Resp BP Pulse Ox
97.8 F 65 18 97/68 100
01/04/25 12:00 01/04/25 12:00 01/04/25 12:00 01/04/25 12:00 01/04/25 12:00
Intake & Output
01/03/25 01/04/25 01/05/25
06:59 06:59 06:59
Intake Total 760 / 760 580 / 580
Output Total 100 / 100
Balance 660 / 660 580 / 580
Intake:
IV fluids (Total) 660 / 660 480 / 480
IV piggybacks 100 / 100 100 / 100
Output:
Urine, Voided 100 / 100
Other:
How many times incontinent 1
MODERATE amount urine
Number of approximated MODERATE 1 3
amounts of urine
Lab Results
01/04/25 08:13
01/04/25 08:13
Physical Exam
-
General: No Acute Distress and AOx3
Abdomen: Soft, Non Distended and Non Tender
Skin: Warm and Dry
--- NOTE | 2025-01-04 14:00 | WOUNDNOTE ---
STOMA BAH (patient is sitting position)
--- NOTE | 2025-01-04 14:05 | W.PN.HOSP.TC ---
Today's Communication/Plan
-
MRI abdomen pending
Continue antibiotics
Flex sig by colorectal
Assessment / Plan
Assessment / Plan
Physical Exam
General: Comfortable and Conversant; No Pain, Fever or Chills
HEENT: NormoCephalic, Anicteric, Moist mucous membranes, PERRLA, [place] Conjunctivae and No Ptosis
Respiratory: Clear; No Wheezes, Rales or Rhonchi
Cardiac: S1/S2, Regular Rhythm and Other (Defibrillator present left upper chest wall); No Murmur, Rub, Gallop or Peripheral Edema
Breast: Deferred by me
GI: Soft, Non Tender, Non Distended, Normal Bowel Sounds and No Hepatosplenomegaly
Genito-urinary: Deferred by me
Musculoskeletal: No Clubbing, No Cyanosis and No Edema
Skin: Warm and Dry; No Rash or Jaundice
Neuro: AO x 3, No Motor Deficits, Nonfocal/grossly intact, Cranial Nerves Intact and No Sensory Deficits; No Slurred Speech, Facial Droop, Tremors or Sedated
Psych: Calm
#Sepsis
#perforated Diverticulitis with developing abscess as well as possible Colovesicular fistula
-F/u blood cultures and urine cultures
-MRI abdomen with IV contrast pending
-colorectal surgery recs�flex sig today
-ID recs
-Bx if needed after MRI
-Abx
-Fluids
-N.p.o.
-Follow CBC, CMP
� CEA�2.71
#Hepatic lesions concerning for hepatic abscesss versus mets on CT
-Will check MRI abdomen with IV contrast
-Plan as above
#UTI with cystitis
-possibly 2/2 to fistula
� E. coli
-IV Zosyn
# Defibrillator Medtronic placed 2021 MRI conditional [id number], model [id number]
Hold Entresto, spironolactone
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
#CAD
#History of PVCs
-Follows with [facility]ology
2D echo 05/14/2023: EF 35-40%, global hypokinesis, dilated left ventricle, septal contractility abnormality, trace aortic regurg, ICD wire present
#Hypothyroidism
-Continue Synthroid 50 mcg p.o. daily
# HTN
Continue Coreg 6.25 mg twice daily with hold parameters
Hold spironolactone 12.5 mg daily
#HLD
Hold atorvastatin 20 mg at bedtime
#History of PVCs
#Former smoker quit 1999
#Former daily drinker quit 1999
Total time spent on today's encounter was 52 minutes which included time spent in counseling the patient/family regarding diagnosis and treatment plan as listed above, goals of care, and symptom management. Case was discussed with nursing staff,
specialists, and care coordinators/case management. All labs and imaging personally reviewed by me. Remainder the time spent in detailed review of previous records, lab data, imaging, and other medical provider documentation.
Anticipated Discharge: > 48 hours
Subjective/Interval History
-
Date of Service: January 04, 2025
Continue n.p.o.
Objective Data
-
Labs:
Laboratory Results
01/04/25
08:13
WBC 13.0 H
Hgb 12.1 L
Hct 36.2 L
Plt Count
Sodium 137
Potassium 4.1
Chloride 105
Carbon Dioxide 22
BUN 14
Creatinine 0.9
Glucose 61 L
Calcium 9.1
Total Bilirubin 1.2
AST 17
ALT 12
Alkaline Phosphatase 91
Vital Signs:
Vital Signs
Temp Pulse Resp BP Pulse Ox
97.8 F 65 18 97/68 100
01/04/25 12:00 01/04/25 12:00 01/04/25 12:00 01/04/25 12:00 01/04/25 12:00
I&O
01/03/25 01/04/25 01/05/25
06:59 06:59 06:59
Intake Total 760 / 760 580 / 580
Output Total 100 / 100
Balance 660 / 660 580 / 580
Review of Systems
-
History Source: Patient
All other systems: Not reviewed unless documented
Data Reviewed
-
CT Scan: Report Reviewed by me
Labs: Labs Reviewed by me
--- NOTE | 2025-01-04 14:25 | WOUNDNOTE ---
[facility] RN note: Stoma marked patient around 14:00 over the bilateral upper quadrants over the rectus muscle avoiding skin creases. Suspect lower quadrants would have higher potential for appliance leakage d/t body habitus. Patient stoma marked in
lying, sitting and standing positions. Patient instructed surgeon makes the final decision of stoma placement. Patient's sacrum and heel skin is intact. He moves self in bed and is ambulatory. and daughter Farnaz present. Daughter Farnaz is a nurse
and she is interested in being present during ostomy teaching. Patient for possible surgery tomorrow.
--- NOTE | 2025-01-04 14:45 | W.PN.UPDATE ---
Update Note
Progress Note Update
Overnight and came to the decision to perform a flexible sigmoidoscopy today on the patient to hopefully get a diagnosis. Concern is whether he has a cancer. Obviously this is a higher risk procedure given his perforated sigmoid etc. If it is
appears to be a cancer, there may be grounds for a Ned procedure tomorrow. The risks and benefits of the flex sig were discussed with the patient and his family at the bedside. He is agreeable to proceed. He understands the potentiality of
surgery tomorrow. He has been marked by ED nursing for potential stoma sites. All questions were answered beforehand.
--- NOTE | 2025-01-04 16:17 | W.PN.UPDATE ---
Update Note
Progress Note Update
Flexible sigmoidoscopy revealed the mass which appeared to be a tumor at 25 cm within the sigmoid. Tattoo was placed at about 20 cm. There was a small benign-appearing rectal polyp which I left in place. I also received word that the MRI reveals
the liver lesion to be concerning for metastatic disease rather than abscess. Given all of the above I am strongly suspicious for likely perforated colon cancer with metastatic disease to the liver. I discussed the situation with the patient and
his and daughter who happens to be an RN. Recommended a trip to the OR tomorrow for open sigmoidectomy with drainage of abscess. Good chance for either colostomy or loop ileostomy depending on how the case goes. Risk benefits were discussed
in detail. Risks described included but not limited to bleeding, infection, ureteral injury, bowel or solid organ injury, hernia formation, urinary or sexual dysfunction, local recurrence of the cancer, and anesthetic risk. The potential for a
liver biopsy also described. The patient and his family understood. They agree to proceed.
--- NOTE | 2025-01-04 16:29 | CM ---
Sigmoidoscopy today revealed mass in sigmoid. Also has lesion on liver. Anticipating open sigmoidectomy with possible colostomy or loop ileostomy. Concern for metastatic disease. Discharge POC: TBD
[2025-01-04] MEDS: CITROMA 300 ML PO (19:47)
[2025-01-05] VITALS (13 sets, daily range): BP systolic 30–140; BP diastolic 52–64
[2025-01-05] MEDS: TUMS CHEWABLE TABLET 200 MG PO (00:07)
[2025-01-05] MEDS: ZOSYN 50 IV ×3 (05:29→21:27)
[2025-01-05] MEDS: SYNTHROID 50 MCG PO (05:32)
[2025-01-05 08:15] LABS: Hematocrit 36.2 % (39.0-52.0); Hemoglobin 12.0 g/dL (13.0-18.0); Mean Corp Hgb Conc. 33.1 g/dL (33.0-37.0); Mean Corpuscular Volume 89.8 fL (80.0-94.0); Nucleated Red Blood Cells % 0 % (-); Red Cell Dist. Width 13.2 % (11.5-14.5)
[2025-01-05 08:23] LABS: ALT (SGPT) 14 U/L (0-50); AST (SGOT) 19 U/L (17-59); Albumin 3.3 g/dl (3.5-5.0); Alkaline Phosphatase 89 U/L (38-126); Blood Urea Nitrogen 13 mg/dl (9-20); Calcium 9.2 mg/dl (8.4-10.2); Carbon Dioxide 22 mmol/L (22-30); Chloride 108 mmol/L (98-107); Estimated Creatinine Clearance 69 ml/min; Glucose 91 mg/dl (70-99); Potassium 3.8 mmol/L (3.5-5.1); Sodium 138 mmol/L (135-145); Total Protein 6.3 g/dl (6.3-8.2); eGFR > 60.00
[2025-01-05] MEDS: COREG PO (09:09)
[2025-01-05] MEDS: PROTONIX PO (09:09)
--- NOTE | 2025-01-05 09:27 | W.PN.ID1 ---
Date of Service
Date of Service: January 05, 2025
Today's Communication
Continue Zosyn.
Assessment / Plan
# Perforated sigmoid with abscess
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
# Leukocytosis - resolved
# Hepatic lesion - likely metastasis - pt never had colon cancer screening
# Weight loss, 6 month h/o GI symptoms passing gas and loose stools
- blood cx's neg to date
- Ucx E. coli
- MRI abd 3.3 x 3.1 cm hepatic lesion suspicious for metastases
- 01/04 s/p Sigmoidoscopy. Per Colorectal found fungating mass on sigmoid.
- To OR today.
- Continue Zosyn d4.
Conditions present on admission:
Hypothyroidism
Nonischemic cardiomyopathy s/p ICD placement
Dyslipidemia
Vertebral compression fracture
CKD2
Back surgery
Right knee fracture repair
Chief Complaint
-: Other
Subjective / Review of Systems
No complaints.
Vital Signs / Physical Exam
Vital Signs
Vital Signs
Temp Pulse Resp BP Pulse Ox
97.6 F 60 17 118/64 97
01/05/25 07:18 01/05/25 07:18 01/05/25 07:18 01/05/25 07:18 01/05/25 07:18
Physical Exam
Constitutional: No Acute Distress and Comfortable
Eyes: Sclera Anicteric
Pulmonary: Clear
Gastrointestinal: Non Tender, Non Distended and Normal Bowel Sounds
Genito-Urinary: Negative CVA Tenderness
Extremities: Negative Edema
Neurological: AO x 3
Objective Data
Lab Data
Lab Results
01/05/25 07:13
01/05/25 07:13
PT Cancelled 01/04/25 17:39
INR Cancelled 01/04/25 17:39
APTT Cancelled 01/04/25 17:39
Estimated Creat Clear 69 ml/min 01/05/25 07:13
Lactic Acid 1.1 mmol/L (0.7-2.0) 01/02/25 11:20
Total Bilirubin 0.8 mg/dl (0.2-1.3) 01/05/25 07:13
AST 19 U/L (17-59) 01/05/25 07:13
ALT 14 U/L (0-50) 01/05/25 07:13
Alkaline Phosphatase 89 U/L (38-126) 01/05/25 07:13
C-Reactive Protein 211.80 mg/L (0.0-10.00) H 01/03/25 07:30
Most recent labs reviewed.
Micro Results:
01/02/25 14:24 Blood Culture - Preliminary
Blood/Venous No Growth in 48 hours- Final report to follow
01/02/25 13:55 Blood Culture - Preliminary
Blood/Venous No Growth in 48 hours- Final report to follow
01/02/25 10:53 Urine Culture - Final
Urine Escherichia coli
01/02/25 CT a/p: Findings of focally perforated sigmoid diverticulitis with a developing pericolonic abscess measuring up to 4.8 cm. This abscess extends into the superior wall of the urinary bladder and likely represents a developing colovesicular
fistula with findings of cystitis. There are multiple ill-defined, mildly hypodense hepatic lesions which measure up to 2.8 cm in the superior aspect of the right hepatic lobe. Given the above findings of diverticulitis these represent developing
hepatic abscesses, however metastasis are also possible.
--- NOTE | 2025-01-05 10:57 | CON.ONC ---
Consultation
-
Date Consultation Requested: 01/05/25
Date Consultation Performed: 01/05/25
Requesting Provider: Dr. Keshawn Trinidad
Performing Provider: Dr. Daniel Cisneros
Reason for Consultation: sigmoid mass
Impression
Impression
colon perforation with abscess
sigmoid mass, CEA 2.71
liver lesion
weight loss
Plan
Plan
OR for open sigmoidectomy with drainage of abscess planned
will follow for path
abx per ID
Updates provided to daughter, Farnaz, via phone ([phone]) per pt request. Questions answered
Patient History
History of Present Illness
79yo M who presented 01/02/2025 with decreased urination, dysuria, and watery diarrhea. He notes a decline since July 2024 and 5-6 months of diarrhea. He has been experiencing vague abdominal pain for the past 3 months as well with a 15lb weight
loss. His initial evaluation was notable for WBC 21.4, ANC 18, Hgb 12.9, platelet 145,000 with normal LFTs and renal function. CT ab/pelvis with IVC showed a focally perforated sigmoid diverticulitis with a developing pericolonic abscess measuring
up to 4.8 cm. This abscess extends into the superior wall of the urinary bladder and likely represents a developing colovesicular fistula with findings of cystitis. MRI abdomen showed a 3.3 x 3.1 cm peripherally enhancing lesion within the hepatic
dome. There are additional scattered hepatic lesions. Sigmoidoscopy showed a fungating partially obstructing large mass was found in the sigmoid colon at 25 cm and a 3mm polyp was found in the rectum. He denies prior colonoscopy. He denies personal
history or family history of malignancy.
Clinically, he denies fever, chills, cough, sob, [place], chest pain, nausea, vominting or abdominal pain.
Past-Medical/Surgical History
PMH CAD, HFrEF with ICD, hypertension, hyperlipidemia, CKD, osteopenia, vertebral compression fracture, hypothyroid
PSH defibrillator Medtronic placed 2021
Social former smoker, former ETOH. denies recreational drug. Retired
Family denies malgnancy
Patient Medication
�Medication �Instructions �Recorded �Confirmed �Last Taken �Type
atorvastatin 20 mg tablet 20 mg PO HS High Cholesterol 04/09/21 01/02/25 01/01/25 History
sacubitril 97 mg-valsartan 103 mg 1 tab PO BID Blood Pressure 01/29/22 01/02/25 01/02/25 History
tablet (Entresto)
spironolactone 25 mg tablet 12.5 mg PO DAILY Fluid 01/29/22 01/02/25 01/01/25 History
Retention/Swelling
carvedilol 6.25 mg tablet (Coreg) 6.25 mg PO BID Blood Pressure 01/02/25 01/02/25 01/01/25 History
ferrous sulfate 325 mg (65 mg 325 mg PO BID Supplement 01/02/25 01/02/25 01/01/25 History
iron) tablet
levothyroxine 50 mcg tablet 50 mcg PO DAILY Thyroid 01/02/25 01/02/25 01/01/25 History
(Synthroid)
loperamide 2 mg tablet 2 mg PO DAILYPRN PRN DAIRRHEA 01/02/25 01/02/25 01/02/25 History
omeprazole 20 mg tablet,delayed 20 mg PO Q48H Gastrointestinal 01/02/25 01/02/25 Unknown History
release Issue
Active Medications
Generic Name Dose Route Start Last Admin
Trade Name Freq PRN Reason Stop Dose Admin
Acetaminophen 650 mg 01/02/25 15:59
Acetaminophen 325 Mg Tablet PO 01/30/25 15:58
Q4HPRN PRN
mild pain/BROWN/temp> 100.4F
Carvedilol 6.25 mg 01/02/25 20:00 01/05/25 09:09
Carvedilol 6.25 Mg Tablet PO 01/30/25 19:59 Not Given
BID VANNA
Heparin Sodium 5,000 units 01/02/25 20:00 01/04/25 07:58
Heparin 5,000 Units/Ml 1 Ml Vial SC 01/30/25 19:59 5,000 units
On Hold: 01/04/25 16:28 Q12 VANNA Administration
Piperacillin Sod/Tazobactam Sod 3.375 gram in 50 mls @ 100 mls/hr 01/04/25 11:00 01/05/25 10:40
Zosyn IV 50 mls
Q6H VANNA Administration
Levothyroxine Sodium 50 mcg 01/03/25 06:00 01/05/25 05:32
Levothyroxine 50 Mcg Tablet PO 01/31/25 05:59 50 mcg
DAILY @ 0600 VANNA Administration
Pantoprazole Sodium 40 mg 01/03/25 08:00 01/05/25 09:09
Pantoprazole 40 Mg Delayed Release Tablet PO 01/31/25 07:59 Not Given
Q48H VANNA
Sodium Chloride 0 flush 01/02/25 17:00
Sodium Chloride 0.9% (Flush) Syringe IV 01/30/25 16:59
PER PROTOCOL VANNA
Review of Systems
-
ROS is notable for HPI, otherwise negative
Physical Exam
-
General: No Apparent Distress and Conversant
HEENT: Moist Mucous Membranes; Negative Jaundice
Pulmonary: Clear
GI: Soft; Negative Distended
Extremities: Pulses Present; Negative Edema
Neurology: Non Focal
Skin: Warm
Hematologic / Lymphatic: No Lymphadenopathy
Psych: Calm
Labs
Lab Results
WBC 9.6 10^3/uL (4.8-10.8) 01/05/25 07:13
RBC 4.03 10^6/uL (4.70-6.10) L 01/05/25 07:13
Hgb 12.0 g/dL (13.0-18.0) L 01/05/25 07:13
Hct 36.2 % (39.0-52.0) L 01/05/25 07:13
MCV 89.8 fL (80.0-94.0) 01/05/25 07:13
MCH 29.8 pg (27.0-31.0) 01/05/25 07:13
MCHC 33.1 g/dL (33.0-37.0) 01/05/25 07:13
RDW 13.2 % (11.5-14.5) 01/05/25 07:13
Plt Count 10^3/uL (130-400) 01/05/25 07:13
MPV Not Reportable 01/05/25 07:13
Abs Immat Gran (auto) 0.0 10^3/uL (0-0.05) 01/05/25 07:13
Absolute Neuts (auto) 6.8 10^3/uL (1.4-6.5) H 01/05/25 07:13
Absolute Lymphs (auto) 1.6 10^3/uL (1.2-3.4) 01/05/25 07:13
Absolute Monos (auto) 0.8 10^3/uL (0.1-0.6) H 01/05/25 07:13
Absolute Eos (auto) 0.3 10^3/uL (0-0.7) 01/05/25 07:13
Absolute Basos (auto) 0.1 10^3/uL (0-0.2) 01/05/25 07:13
Immature Gran % 0.4 % (0-0.5) 01/05/25 07:13
Neutrophils % 71.4 % (42.2-75.2) 01/05/25 07:13
Lymphocytes % 16.4 % (20.5-51.1) L 01/05/25 07:13
Monocytes % 8.2 % (1.7-9.3) 01/05/25 07:13
Eosinophils % 3.0 % (0-6) 01/05/25 07:13
Basophils % 0.6 % (0-2) 01/05/25 07:13
Creatinine 0.9 mg/dL (0.7-1.3) 01/05/25 07:13
Vital Signs
Vital Signs
Temp Pulse Resp BP Pulse Ox
97.6 F 60 17 118/64 97
01/05/25 07:18 01/05/25 07:18 01/05/25 07:18 01/05/25 07:18 01/05/25 07:18
--- NOTE | 2025-01-05 13:42 | W.PN.HOSP.TC ---
Today's Communication/Plan
-
open sigmoidectomy with drainage of abscess 01/05
Await pathology results
Oncology consulted
Continue antibiotics
Assessment / Plan
Assessment / Plan
Physical Exam
General: Comfortable and Conversant; No Pain, Fever or Chills
HEENT: NormoCephalic, Anicteric, Moist mucous membranes, PERRLA, [place] Conjunctivae and No Ptosis
Respiratory: Clear; No Wheezes, Rales or Rhonchi
Cardiac: S1/S2, Regular Rhythm and Other (Defibrillator present left upper chest wall); No Murmur, Rub, Gallop or Peripheral Edema
Breast: Deferred by me
GI: Soft, Non Tender, Non Distended, Normal Bowel Sounds and No Hepatosplenomegaly
Genito-urinary: Deferred by me
Musculoskeletal: No Clubbing, No Cyanosis and No Edema
Skin: Warm and Dry; No Rash or Jaundice
Neuro: AO x 3, No Motor Deficits, Nonfocal/grossly intact, Cranial Nerves Intact and No Sensory Deficits; No Slurred Speech, Facial Droop, Tremors or Sedated
Psych: Calm
#Sepsis
#perforated Diverticulitis with developing abscess along with possible colovesicular fistula
-source probably is 25cm tumor - probable malignant and metastatic
-F/u blood cultures
-colorectal surgery recs�flex sig 01/04
-open sigmoidectomy with drainage of abscess 01/05
-ID recs
-Abx
-Fluids
-N.p.o.
-Follow CBC, CMP
� CEA�2.71
#Hepatic lesions concerning for metastasis
�Suspect source is: Due to mass found in the sigmoid colon
� Oncology consulted
� Continue surgical approach for pathological diagnosis
� PET and CT scan outpatient
� Defer liver biopsy at this time as per oncology
� Plan as above
#UTI with cystitis
-possibly 2/2 to fistula
� E. coli
-IV Zosyn
# Defibrillator Medtronic placed 2021 MRI conditional [id number], model [id number]
Hold Entresto, spironolactone
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
#CAD
#History of PVCs
-Follows with [facility] cardiology
2D echo 05/14/2023: EF 35-40%, global hypokinesis, dilated left ventricle, septal contractility abnormality, trace aortic regurg, ICD wire present
�Continue Coreg
#Hypothyroidism
-Continue Synthroid 50 mcg p.o. daily
# HTN
Continue Coreg 6.25 mg twice daily with hold parameters
Hold spironolactone 12.5 mg daily
#HLD
Hold atorvastatin 20 mg at bedtime
#History of PVCs
#Former smoker quit 1999
#Former daily drinker quit 1999
Total time spent on today's encounter was 53 minutes which included time spent in counseling the patient/family regarding diagnosis and treatment plan as listed above, goals of care, and symptom management. Case was discussed with nursing staff,
specialists, and care coordinators/case management. All labs and imaging personally reviewed by me. Remainder the time spent in detailed review of previous records, lab data, imaging, and other medical provider documentation.
Anticipated Discharge: > 48 hours
Subjective/Interval History
-
Date of Service: January 05, 2025
Mass noted in flex-sig - suspcious for Ca
Objective Data
-
Labs:
Laboratory Results
01/05/25
07:13
WBC 9.6
Hgb 12.0 L
Hct 36.2 L
Plt Count
Sodium 138
Potassium 3.8
Chloride 108 H
Carbon Dioxide 22
BUN 13
Creatinine 0.9
Glucose 91
Calcium 9.2
Total Bilirubin 0.8
AST 19
ALT 14
Alkaline Phosphatase 89
Vital Signs:
Vital Signs
Temp Pulse Resp BP Pulse Ox
97.6 F 60 17 118/64 97
01/05/25 07:18 01/05/25 07:18 01/05/25 07:18 01/05/25 07:18 01/05/25 07:18
I&O
01/04/25 01/05/25 01/06/25
06:59 06:59 06:59
Intake Total 580 / 580 920 / 920
Balance 580 / 580 920 / 920
Review of Systems
-
History Source: Patient
All other systems: Not reviewed unless documented
Data Reviewed
-
CT Scan: Report Reviewed by me
Labs: Labs Reviewed by me
--- NOTE | 2025-01-05 16:07 | CM ---
CM reviewed chart.
Patient for OR for sigmoidectomy.
Patient remains on IV antibiotics.
Oncology consulted.
Care ongoing at this time, will continue to follow for all d/c planning needs.
Plan; home no needs, watch for VN needs.
--- NOTE | 2025-01-05 16:35 | W.IMMPOSTOP ---
Surgical Immed Post Op Note
-
Primary Surgeon: Israel
Assisting Surgeon: Kailash
Pre-op Diagnosis: Sigmoid diverticulitis w/ associated abscess, sigmoid mass suspicious for malignancy, colovesical adhesions, liver lesions
Post-op Diagnosis: Same
Procedure Performed:
1. Takedown of colovesical adhesions
2. Cystorrhaphy
Anesthesia Type: GETA
Specimen / Cultures: None/None
Estimated Blood Loss: Negligible
Complications: None
Operative Findings:
1. Significant inflammatory rind w/ no clear plane between sigmoid mass and bladder dome - transected w/ blunt dissection and cautery.
2. Back-filling of bladder w/ 240 cc irrigation fluid WITHOUT clear urine leak noted.
3. Thinning of bladder dome - cystorrhaphy performed to reinforce muscularis (2-0 Vicryl).
--- NOTE | 2025-01-05 17:57 | W.OR.COLCA ---
Addendum entered and electronically signed by Cristóbal Linder MD 01/05/25 18:20:
Patient's family (daughter and ) updated via phone conversation.
Original Note:
Colon Cancer Post Op Note
Immediate Post Op
Primary Surgeon: Susan Linder MD
Assisting Surgeon: DEMI Little
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
Post-op Diagnosis: same
Procedure Performed: 1) Ned's resection (sigmoidectomy with colostomy) 2) biopsy of left liver lobe nodule (3) cystorrhaphy by Dr. Wood of urology)
Anesthesia Type: general plus local
Specimen / Cultures: sigmoid colon with tattoo marking distal
Estimated Blood Loss: 50 cc
Complications: no immediate
Operative Findings: 1) sigmoid mass/tumor plastered to dome of bladder 2) no obvious abscess found 3) significant induration (?lymphadenopathy) of left sided distal sigmoid and upper rectal mesentery 4) 1 right lobe liver nodule and 1 left lobe
liver nodules with metastatic appearance
#19 Boom in pelvis.
Rojas in bladder.
Colon Resection
Colon Resection
Operation performed with curative intent: No
Tumor Location: Sigmoid Colon
Sigmoid Resection: Inferior Mesenteric
[2025-01-05] MEDS: NORMOSOL-R/PLASMALYTE-A 1000 IV (19:59)
[2025-01-05] MEDS: TORADOL 10 MG IV (20:00)
[2025-01-05] MEDS: COREG 6.25 MG PO (20:00)
[2025-01-05] MEDS: TYLENOL 650 MG PO (20:00)
[2025-01-05] MEDS: ZOSYN IV (21:35)
[2025-01-06] VITALS (8 sets, daily range): BP systolic 82–114; BP diastolic 48–62; PULSE 79; O2SAT 97; BMI 25.2
[2025-01-06] MEDS: TYLENOL 650 MG PO ×6 (00:38→19:30)
[2025-01-06] MEDS: TORADOL 10 MG IV ×4 (02:12→19:34)
[2025-01-06] MEDS: ZOSYN 50 IV ×4 (02:14→21:25)
[2025-01-06] MEDS: SYNTHROID 50 MCG PO (05:37)
[2025-01-06] MEDS: COREG PO ×2 (07:13→19:34)
[2025-01-06] MEDS: NORMOSOL-R/PLASMALYTE-A 1000 IV ×2 (07:17→16:26)
[2025-01-06 07:56] LABS: Hematocrit 35.2 % (39.0-52.0); Hemoglobin 11.6 g/dL (13.0-18.0); Mean Corp Hgb Conc. 33.0 g/dL (33.0-37.0); Mean Corpuscular Volume 88.0 fL (80.0-94.0); Nucleated Red Blood Cells % 0 % (-); Red Cell Dist. Width 13.3 % (11.5-14.5)
[2025-01-06 08:04] LABS: ALT (SGPT) 18 U/L (0-50); AST (SGOT) 26 U/L (17-59); Albumin 3.1 g/dl (3.5-5.0); Alkaline Phosphatase 73 U/L (38-126); Blood Urea Nitrogen 16 mg/dl (9-20); Calcium 8.4 mg/dl (8.4-10.2); Carbon Dioxide 20 mmol/L (22-30); Chloride 105 mmol/L (98-107); Estimated Creatinine Clearance 69 ml/min; Glucose 112 mg/dl (70-99); Magnesium 2.2 mg/dl (1.6-2.3); Potassium 4.4 mmol/L (3.5-5.1); Sodium 135 mmol/L (135-145); Total Protein 6.3 g/dl (6.3-8.2); eGFR > 60.00
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
--- NOTE | 2025-01-06 09:59 | W.PN.CRS1 ---
Today's Communication / Plan
-
clears
OOB
lovenox
Assessment/Plan
-
POD#1 1) Ned's resection (sigmoidectomy with colostomy) 2) biopsy of left liver lobe nodule (3) cystorrhaphy by Dr. Wood of urology)
Vitals: hypotention this AM 90/50's, improved
afebrile
WBC: 16.3 (9.6), Hgb 11.0 (12.0)
-Advance diet to clears
-OOB with PT/OT
-Monitor WBC
-Maintain shields until tomorrow AM
-Start lovenox for dvt prophylaxis. Teds/scds in place.
-OR pathology pending
-Maintain EMILIA drain until d/c
-Continue zosyn IV for the next several days, at least through the weekend (abscess)
-Pain control: Tyelnol/toradol standing, dilaudid PRN
-Will need eventual eliquis 2.5mg po BID for 30 days on d/c (cancer)
Subjective Data
Procedure
1) Ned's resection (sigmoidectomy with colostomy) 2) biopsy of left liver lobe nodule (3) cystorrhaphy by Dr. Wood of urology)
Subjective Data
Date of Service: January 06, 2025
Patient states he feels well. He is hungry. Denies nausea or vomiting. His pain is controlled. He has no complaints.
Objective Data
-
Vital Signs
Temp Pulse Resp BP Pulse Ox
97.8 F 64 20 90/49 94
01/06/25 07:15 01/06/25 07:15 01/06/25 07:15 01/06/25 07:15 01/06/25 07:15
Intake & Output
01/05/25 01/06/25 01/07/25
06:59 06:59 06:59
Intake Total 920 / 920 1100 / 1100
Output Total 740 / 740
Balance 920 / 920 360 / 360
Intake:
Oral fluids 820 / 820
IV fluids (Total) 1000 / 1000
IV piggybacks 100 / 100 100 / 100
Output:
Drain Output (Total) 190 / 190
Right Abdomen [place] 190 / 190
Urine, [place] 550 / 550
Other:
Number of approximated SMALL 5
amounts of urine
Number of approximated MODERATE 2
amounts of urine
Number of unmeasured liquid
stools
Rectum 9
Lab Results
01/06/25 07:03
01/06/25 07:03
Physical Exam
-
General: No Acute Distress and AOx3
Abdomen: Soft, Non Distended, Non Tender and Other (colostomy warm and pink, no output yet)
Skin: Warm and Dry
--- NOTE | 2025-01-06 10:32 | CM ---
CM following re: discharge planning.
Reviewed pt';s chart, met with pt.
Pt is POD#1 1) Ned's resection (sigmoidectomy with colostomy) 2) biopsy of left liver lobe nodule (3) cystorrhaphy. per Colorectal surgery, maintain EMILIA drain until d/c, continue Zosyn IV for the next several days, at least through the weekend
(abscess), continue supportive care.
Per MD pt will need Eliquis for 30 days only. Free 30 day trial Eliquis coupon given to the pt and explained how it works. Pt expressed appreciation.
Pt stated he will need VN services upon the discharge and he requested [facility],. A referral to [facility] made.
IMM reviewed, placed on chart, pt has a copy.
Pt reports he lives with spouse, daughter and her family. pt receiving supplemental Oxygen now, does not have home O2. Pt stated he will not need supplemental oxygen at home. Pt stated his daughter/spouse will transport at discharge.
D/C plan: home with [facility] and family support. Daughter/spouse to transport at discharge.
CM will follow with discharge plan updates as hospitalization progresses
--- NOTE | 2025-01-06 11:50 | W.PN.UPDATE ---
Update Note
Progress Note Update
01/05: s/p Ned's resection (sigmoidectomy w/ colostomy), left liver lobe nodule biopsy, simple cystorrhaphy (reinforcement)
No urine leakage on back-filling noted intraop prior to and after reinforcement of bladder serosa.
Cr 0.9
- OK for Rojas catheter removal and VT on POD#2 per CRS
--- NOTE | 2025-01-06 11:51 | VNURNOTE ---
Home Health Liaison met with patient at bedside to discuss [facility] nurse/therapy, visits, schedule and homebound status. Patient is agreeable and understands that visits at home will be 2-3 x per week to assess and teach medical and ostomy
management. Patient is aware that [facility] will contact them for start of care in 1-2 days after discharge from . Provided contact number for [facility].
[facility] referral completed in [facility].
--- NOTE | 2025-01-06 12:41 | W.PN.ID1 ---
Date of Service
Date of Service: January 06, 2025
Today's Communication
Continue Zosyn.
Assessment / Plan
# Colon cancer with perforated sigmoid
# E. coli UTI
# Leukocytosis - post-op
# Hepatic lesion - likely metastasis
# Weight loss, 6 month h/o GI symptoms passing gas and loose stools
- blood cx's neg to date
- Ucx E. coli
- MRI abd 3.3 x 3.1 cm hepatic lesion suspicious for metastases
- 01/04 s/p Sigmoidoscopy. Per Colorectal found fungating mass on sigmoid.
- 01/05 s/p sigmoidectomy, colostomy. liver biopsy, cystorrhaphy.
OR findings of sigmoid mass plastered to dome of bladder. NO obvious abscess. NO colovesical fistula.
- Continue Zosyn (d5) for now.
Conditions present on admission:
Hypothyroidism
Nonischemic cardiomyopathy s/p ICD placement
Dyslipidemia
Vertebral compression fracture
CKD2
Back surgery
Right knee fracture repair
Chief Complaint
-: Other
Subjective / Review of Systems
Surgery went well.
Vital Signs / Physical Exam
Vital Signs
Vital Signs
Temp Pulse Resp BP Pulse Ox
98.6 F 75 18 82/56 97
01/06/25 11:22 01/06/25 11:22 01/06/25 11:22 01/06/25 11:22 01/06/25 11:22
Physical Exam
Constitutional: No Acute Distress and Comfortable
Cardiovascular: Regular Rate and S1/S2
Pulmonary: Clear
Gastrointestinal: Soft, Non Tender, Non Distended and Other (ostomy no stool)
Genito-Urinary: Negative CVA Tenderness
Extremities: Negative Edema
Neurological: AO x 3
Objective Data
Lab Data
Lab Results
01/06/25 07:03
01/06/25 07:03
PT Cancelled 01/04/25 17:39
INR Cancelled 01/04/25 17:39
APTT Cancelled 01/04/25 17:39
Estimated Creat Clear 69 ml/min 01/06/25 07:03
Lactic Acid 1.1 mmol/L (0.7-2.0) 01/02/25 11:20
Total Bilirubin 0.9 mg/dl (0.2-1.3) 01/06/25 07:03
AST 26 U/L (17-59) 01/06/25 07:03
ALT 18 U/L (0-50) 01/06/25 07:03
Alkaline Phosphatase 73 U/L (38-126) 01/06/25 07:03
C-Reactive Protein 211.80 mg/L (0.0-10.00) H 01/03/25 07:30
Most recent labs reviewed.
Micro Results:
01/02/25 14:24 Blood Culture - Preliminary
Blood/Venous No Growth in 72 hours- Final report to follow
01/02/25 13:55 Blood Culture - Preliminary
Blood/Venous No Growth in 72 hours- Final report to follow
01/02/25 10:53 Urine Culture - Final
Urine Escherichia coli
01/02/25 CT a/p: Findings of focally perforated sigmoid diverticulitis with a developing pericolonic abscess measuring up to 4.8 cm. This abscess extends into the superior wall of the urinary bladder and likely represents a developing colovesicular
fistula with findings of cystitis. There are multiple ill-defined, mildly hypodense hepatic lesions which measure up to 2.8 cm in the superior aspect of the right hepatic lobe. Given the above findings of diverticulitis these represent developing
hepatic abscesses, however metastasis are also possible.
[2025-01-06] MEDS: LR 500 IV (12:53)
--- NOTE | 2025-01-06 14:18 | W.PN.ONC2 ---
Today's Communication / Plan
-
.
Impression
Impression
colon perforation with abscess
sigmoid mass, CEA 2.71
s/p Ned's resection (sigmoidectomy with colostomy), biopsy of left liver lobe nodule 01/05
liver lesion
weight loss
Plan
Plan
will follow for path
abx per ID
Subjective/Objective
Subjective
post operative pain controlled
no ostomy flatus or stool output
Vital Signs:
Vital Signs
Temp Pulse Resp BP Pulse Ox
98.6 F 75 18 82/56 97
01/06/25 11:22 01/06/25 11:22 01/06/25 11:22 01/06/25 11:22 01/06/25 11:22
Lab Results:
Laboratory Data
WBC 16.3 10^3/uL (4.8-10.8) H 01/06/25 07:03
Hgb 11.6 g/dL (13.0-18.0) L 01/06/25 07:03
Plt Count 10^3/uL (130-400) 01/06/25 07:03
PT Cancelled 01/04/25 17:39
INR Cancelled 01/04/25 17:39
APTT Cancelled 01/04/25 17:39
eGFR > 60.00 01/06/25 07:03
Physical Exam
HEENT: Moist Mucous Membranes; No Jaundice
Pulmonary: Clear
GI: Other (ostomy, EMILIA drain, dressing)
Extremities: Pulses Present; No Edema
--- NOTE | 2025-01-06 14:22 | W.PN.HOSP.TC ---
Today's Communication/Plan
-
abx
Shields out tomorrow
CLD, ADAT
F/u cultures, bx
Assessment / Plan
Assessment / Plan
Physical Exam
General: Comfortable and Conversant; No Pain, Fever or Chills
HEENT: NormoCephalic, Anicteric, Moist mucous membranes, PERRLA, [place] Conjunctivae and No Ptosis
Respiratory: Clear; No Wheezes, Rales or Rhonchi
Cardiac: S1/S2, Regular Rhythm and Other (Defibrillator present left upper chest wall); No Murmur, Rub, Gallop or Peripheral Edema
Breast: Deferred by me
GI: Soft, Non Tender, Non Distended, Normal Bowel Sounds and No Hepatosplenomegaly; colostomy warm and pink, no output yet
Genito-urinary: Deferred by me
Musculoskeletal: No Clubbing, No Cyanosis and No Edema
Skin: Warm and Dry; No Rash or Jaundice
Neuro: AO x 3, No Motor Deficits, Nonfocal/grossly intact, Cranial Nerves Intact and No Sensory Deficits; No Slurred Speech, Facial Droop, Tremors or Sedated
Psych: Calm
#Sepsis
#perforated Diverticulitis with developing abscess along with possible colovesicular fistula
-source probably is 25cm tumor - probable malignant and metastatic
-colorectal surgery recs�flex sig 01/04
-01/05 1. Ned's resection (sigmoidectomy with colostomy) 2. biopsy of left liver lobe nodule 3. cystorrhaphy by Dr. Wood of urology
-ID recs
-Abx
-Fluids
-CLD
-Maintain shields until tomorrow AM
-Maintain EMILIA drain until d/c
-Follow CBC, CMP
--Will need eventual eliquis 2.5mg po BID for 30 days on d/c (cancer) as per CRS
� CEA�2.71
#Hepatic lesions concerning for metastasis
�Suspect source is: Due to mass found in the sigmoid colon
� Oncology consulted
� Continue surgical approach for pathological diagnosis
� PET and CT scan outpatient
� Defer liver biopsy at this time as per oncology
� Plan as above
#UTI with cystitis
-possibly 2/2 to fistula
� E. coli
-IV Zosyn
# Defibrillator Medtronic placed 2021 MRI conditional [id number], model [id number]
Hold Entresto, spironolactone
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
#CAD
#History of PVCs
-Follows with [facility]
2D echo 05/14/2023: EF 35-40%, global hypokinesis, dilated left ventricle, septal contractility abnormality, trace aortic regurg, ICD wire present
�Continue Coreg
#Hypothyroidism
-Continue Synthroid 50 mcg p.o. daily
# HTN
Continue Coreg 6.25 mg twice daily with hold parameters
Hold spironolactone 12.5 mg daily
#HLD
Hold atorvastatin 20 mg at bedtime
#DVT ppx- lovenox
#History of PVCs
#Former smoker quit 1999
#Former daily drinker quit 1999
Total time spent on today's encounter was 55 minutes which included time spent in counseling the patient/family regarding diagnosis and treatment plan as listed above, goals of care, and symptom management. Case was discussed with nursing staff,
specialists, and care coordinators/case management. All labs and imaging personally reviewed by me. Remainder the time spent in detailed review of previous records, lab data, imaging, and other medical provider documentation.
Anticipated Discharge: > 48 hours
Subjective/Interval History
-
Date of Service: January 06, 2025
Tolerated procedure well, clear liquid diet
Objective Data
-
Labs:
Laboratory Results
01/06/25
07:03
WBC 16.3 H
Hgb 11.6 L
Hct 35.2 L
Plt Count
Sodium 135
Potassium 4.4
Chloride 105
Carbon Dioxide 20 L
BUN 16
Creatinine 0.9
Glucose 112 H
Calcium 8.4
Total Bilirubin 0.9
AST 26
ALT 18
Alkaline Phosphatase 73
Vital Signs:
Vital Signs
Temp Pulse Resp BP Pulse Ox
98.6 F 75 18 82/56 97
01/06/25 11:22 01/06/25 11:22 01/06/25 11:22 01/06/25 11:22 01/06/25 11:22
I&O
01/05/25 01/06/25 01/07/25
06:59 06:59 06:59
Intake Total 920 / 920 1100 / 1100
Output Total 740 / 740
Balance 920 / 920 360 / 360
Review of Systems
-
History Source: Patient
All other systems: Not reviewed unless documented
Data Reviewed
-
CT Scan: Report Reviewed by me
Labs: Labs Reviewed by me
[2025-01-06] MEDS: LOVENOX 40 MG SC (16:59)
[2025-01-07] MEDS: TYLENOL 650 MG PO ×5 (00:15→19:30)
[2025-01-07] MEDS: NORMOSOL-R/PLASMALYTE-A 1000 IV (00:16)
[2025-01-07] MEDS: ZOSYN 50 IV ×4 (03:07→21:22)
[2025-01-07] MEDS: TORADOL 10 MG IV ×4 (03:07→19:29)
[2025-01-07] MEDS: SYNTHROID 50 MCG PO (05:44)
[2025-01-07 06:00] VITALS: BMI 25.7
[2025-01-07 07:40] VITALS: BP 133/66
[2025-01-07] MEDS: PROTONIX 40 MG PO (08:14)
[2025-01-07] MEDS: COREG PO ×2 (08:14→19:30)
--- NOTE | 2025-01-07 09:09 | W.PN.ID1 ---
Date of Service
Date of Service: January 07, 2025
Today's Communication
See below.
Assessment / Plan
# Colon cancer with perforated sigmoid
# E. coli UTI
# Leukocytosis - post-op
# Hepatic lesion - likely metastasis
# Weight loss, 6 month h/o GI symptoms passing gas and loose stools
- blood cx's neg to date
- Ucx E. coli
- MRI abd 3.3 x 3.1 cm hepatic lesion suspicious for metastases
- 01/04 s/p Sigmoidoscopy. Per Colorectal found fungating mass on sigmoid.
- 01/05 s/p sigmoidectomy, colostomy. liver biopsy, cystorrhaphy.
OR findings of sigmoid mass plastered to dome of bladder. NO obvious abscess. NO colovesical fistula.
- Continue Zosyn (d6) as per Colorectal request. Otherwise, can de-escalate to po abx.
Conditions present on admission:
Hypothyroidism
Nonischemic cardiomyopathy s/p ICD placement
Dyslipidemia
Vertebral compression fracture
CKD2
Back surgery
Right knee fracture repair
Chief Complaint
-: Other
Subjective / Review of Systems
Doing well.
Vital Signs / Physical Exam
Vital Signs
Vital Signs
Temp Pulse Resp BP Pulse Ox
97.6 F 53 16 133/66 94
01/07/25 07:40 01/07/25 07:40 01/07/25 07:40 01/07/25 07:40 01/07/25 07:40
Physical Exam
Constitutional: No Acute Distress and Comfortable
Cardiovascular: Regular Rate and S1/S2
Pulmonary: Clear
Gastrointestinal: Soft, Non Tender, Non Distended and Other (ostomy no stool)
Genito-Urinary: Negative CVA Tenderness
Extremities: Negative Edema
Neurological: AO x 3
Objective Data
Lab Data
PT Cancelled 01/04/25 17:39
INR Cancelled 01/04/25 17:39
APTT Cancelled 01/04/25 17:39
Estimated Creat Clear 69 ml/min 01/06/25 07:03
Lactic Acid 1.1 mmol/L (0.7-2.0) 01/02/25 11:20
Total Bilirubin 0.9 mg/dl (0.2-1.3) 01/06/25 07:03
AST 26 U/L (17-59) 01/06/25 07:03
ALT 18 U/L (0-50) 01/06/25 07:03
Alkaline Phosphatase 73 U/L (38-126) 01/06/25 07:03
C-Reactive Protein 211.80 mg/L (0.0-10.00) H 01/03/25 07:30
Most recent labs reviewed.
Micro Results:
01/02/25 14:24 Blood Culture - Preliminary
Blood/Venous No Growth in 4 days- Final report to follow
01/02/25 13:55 Blood Culture - Preliminary
Blood/Venous No Growth in 4 days- Final report to follow
01/02/25 10:53 Urine Culture - Final
Urine Escherichia coli
01/02/25 CT a/p: Findings of focally perforated sigmoid diverticulitis with a developing pericolonic abscess measuring up to 4.8 cm. This abscess extends into the superior wall of the urinary bladder and likely represents a developing colovesicular
fistula with findings of cystitis. There are multiple ill-defined, mildly hypodense hepatic lesions which measure up to 2.8 cm in the superior aspect of the right hepatic lobe. Given the above findings of diverticulitis these represent developing
hepatic abscesses, however metastasis are also possible.
[2025-01-07 09:10] LABS: Hematocrit 38.9 % (39.0-52.0); Hemoglobin 12.7 g/dL (13.0-18.0); Mean Corp Hgb Conc. 32.6 g/dL (33.0-37.0); Mean Corpuscular Volume 90.7 fL (80.0-94.0); Nucleated Red Blood Cells % 0 % (-); Red Cell Dist. Width 13.4 % (11.5-14.5)
[2025-01-07 09:59] LABS: AST (SGOT) 32 U/L (17-59); Albumin 3.1 g/dl (3.5-5.0); Alkaline Phosphatase 68 U/L (38-126); Blood Urea Nitrogen 19 mg/dl (9-20); Calcium 8.4 mg/dl (8.4-10.2); Carbon Dioxide 28 mmol/L (22-30); Chloride 103 mmol/L (98-107); Estimated Creatinine Clearance 56 ml/min; Glucose 82 mg/dl (70-99); Potassium 3.8 mmol/L (3.5-5.1); Sodium 137 mmol/L (135-145); Total Protein 6.0 g/dl (6.3-8.2); eGFR > 60.00
[2025-01-07 10:09] LABS: ALT (SGPT) 25 U/L (0-50)
[2025-01-07] MEDS: TYLENOL PO (12:32)
--- NOTE | 2025-01-07 12:45 | W.PN.HOSP.TC ---
Today's Communication/Plan
-
Diet as per surgery
await output from stoma
TOV
Abx
Assessment / Plan
Assessment / Plan
Physical Exam
General: Comfortable and Conversant; No Pain, Fever or Chills
HEENT: NormoCephalic, Anicteric, Moist mucous membranes, PERRLA, [place] Conjunctivae and No Ptosis
Respiratory: Clear; No Wheezes, Rales or Rhonchi
Cardiac: S1/S2, Regular Rhythm and Other (Defibrillator present left upper chest wall); No Murmur, Rub, Gallop or Peripheral Edema
Breast: Deferred by me
GI: Soft, Non Tender, Non Distended, Normal Bowel Sounds and No Hepatosplenomegaly; colostomy warm and pink, no output yet
Genito-urinary: Deferred by me
Musculoskeletal: No Clubbing, No Cyanosis and No Edema
Skin: Warm and Dry; No Rash or Jaundice
Neuro: AO x 3, No Motor Deficits, Nonfocal/grossly intact, Cranial Nerves Intact and No Sensory Deficits; No Slurred Speech, Facial Droop, Tremors or Sedated
Psych: Calm
#Sepsis
#perforated Diverticulitis with developing abscess along with possible colovesicular fistula
-source probably is 25cm tumor - probable malignant and metastatic
-colorectal surgery recs�flex sig 01/04
-01/05 1. Ned's resection (sigmoidectomy with colostomy) 2. biopsy of left liver lobe nodule 3. cystorrhaphy by Dr. Wood of urology
-ID recs
-Abx
-Fluids
-CLD
- Rojas out, TOV
-Maintain EMILIA drain until d/c
-Follow CBC, CMP
--Will need eventual eliquis 2.5mg po BID for 30 days on d/c (cancer) as per CRS
� CEA�2.71
#Hepatic lesions concerning for metastasis
�Suspect source is: Due to mass found in the sigmoid colon
� Oncology consulted
� Continue surgical approach for pathological diagnosis
� PET and CT scan outpatient
� Defer liver biopsy at this time as per oncology
� Plan as above
#UTI with cystitis
-possibly 2/ to fistula
� E. coli
-IV Zosyn
# Defibrillator Medtronic placed 2021 MRI conditional [id number], model [id number]
Hold Entresto, spironolactone
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
#CAD
#History of PVCs
-Follows with [facility]
2D echo 05/14/2023: EF 35-40%, global hypokinesis, dilated left ventricle, septal contractility abnormality, trace aortic regurg, ICD wire present
�Continue Coreg
#Hypothyroidism
-Continue Synthroid 50 mcg p.o. daily
# HTN
Continue Coreg 6.25 mg twice daily with hold parameters
Hold spironolactone 12.5 mg daily
#HLD
Hold atorvastatin 20 mg at bedtime
#DVT ppx- lovenox
#History of PVCs
#Former smoker quit 1999
#Former daily drinker quit 1999
Total time spent on today's encounter was 52 minutes which included time spent in counseling the patient/family regarding diagnosis and treatment plan as listed above, goals of care, and symptom management. Case was discussed with nursing staff,
specialists, and care coordinators/case management. All labs and imaging personally reviewed by me. Remainder the time spent in detailed review of previous records, lab data, imaging, and other medical provider documentation.
Anticipated Discharge: > 48 hours
Subjective/Interval History
-
Date of Service: January 07, 2025
Rojas removed, trial of void. No output from still from stoma as of yet
Objective Data
-
Labs:
Laboratory Results
01/07/25
08:40
WBC 20.0 H
Hgb 12.7 L
Hct 38.9 L
Plt Count
Sodium 137
Potassium 3.8
Chloride 103
Carbon Dioxide 28
BUN 19
Creatinine 1.1
Glucose 82
Calcium 8.4
Total Bilirubin 0.5
AST 32
ALT 25
Alkaline Phosphatase 68
Vital Signs:
Vital Signs
Temp Pulse Resp BP Pulse Ox
97.6 F 53 16 133/66 94
01/07/25 07:40 01/07/25 07:40 01/07/25 07:40 01/07/25 07:40 01/07/25 07:40
I&O
01/06/25 01/07/25 01/08/25
06:59 06:59 06:59
Intake Total 1100 / 1100 2160 / 2160
Output Total 740 / 740 1460 / 1460
Balance 360 / 360 700 / 700
Review of Systems
-
History Source: Patient
All other systems: Not reviewed unless documented
Data Reviewed
-
CT Scan: Report Reviewed by me
Labs: Labs Reviewed by me
--- NOTE | 2025-01-07 14:59 | W.PN.CRS1 ---
Addendum entered and electronically signed by Syed Wylie MD 01/07/25 16:18:
I saw and examined the patient.
The [employer] Moulding [employer] Operator's note was reviewed and I agree with the note.
Comment: pain controlled, small flatus in appliance, exam approp, cont abx, trend wbc, cld until more robust bowel function
Original Note:
Today's Communication / Plan
-
ABX
Clears
Assessment/Plan
-
79 yo male with perforated colon cancer with abscess; liver mets now POD#2 1) Ned's resection (sigmoidectomy with colostomy) 2) biopsy of left liver lobe nodule (3) cystorrhaphy by Dr. Wood of urology)
Afebrile, stable vital signs
Leukocytosis present, rising
Blood cx with ngtd
Beginning to pass some flatus via appliance, some increased pain after breakfast tray but no nausea
Plan:
-Continue clears
-OOB with PT/OT
-Trend labs, c/w IV Zosyn
-Rojas removed for voiding trial
-OR pathology pending
-Maintain EMILIA drain
-c/w IVF until good PO intake
-Continue zosyn IV for the next several days, at least through the weekend (abscess)
-Pain control: Tyelnol/toradol standing, tramadol/dilaudid PRN
-c/w lovenox for dvt prophylaxis. Teds/scds in place.
-Will need eventual eliquis 2.5mg po BID for 30 days on d/c (cancer)
Subjective Data
Procedure
1) Ned's resection (sigmoidectomy with colostomy) 2) biopsy of left liver lobe nodule (3) cystorrhaphy by Dr. Wood of urology)
Subjective Data
Date of Service: January 07, 2025
Pt seen and examined at bedside with Dr. Wylie. Denies n/v. OOB to chair. Cramping pain after breakfast tray but otherwise no pain.
Objective Data
-
Vital Signs
Temp Pulse Resp BP Pulse Ox
97.6 F 53 16 133/66 94
01/07/25 07:40 01/07/25 07:40 01/07/25 07:40 01/07/25 07:40 01/07/25 07:40
Intake & Output
01/06/25 01/07/25 01/08/25
06:59 06:59 06:59
Intake Total 1100 / 1100 2160 / 2160 960 / 960
Output Total 740 / 740 1460 / 1460
Balance 360 / 360 700 / 700 960 / 960
Intake:
Oral fluids 960 / 960 960 / 960
IV fluids (Total) 1000 / 1000 1200 / 1200
IV piggybacks 100 / 100
Output:
Drain Output (Total) 190 / 190 90 / 90
Right Abdomen [place] 190 / 190 90 / 90
Urine, Rojas 550 / 550 1370 / 1370
Other:
Number of approximated SMALL 5
amounts of urine
Number of approximated LARGE 1
amounts of urine
Number of unmeasured liquid
stools
Rectum 9
Lab Results
01/07/25 08:40
01/07/25 08:40
Physical Exam
-
General: No Acute Distress and AOx3
Abdomen: Soft, Non Distended, Non Tender and Other (colostomy mild edema; warm and pink, some flatus/bowel sweat in appliance)
Skin: Warm and Dry
Incision: Other (midline dressing intact with minimal strikethrough, EMILIA with SSF)
[2025-01-07] MEDS: LOVENOX 40 MG SC (17:14)
[2025-01-07 23:00] VITALS: BP 107/59
[2025-01-08] MEDS: TYLENOL 650 MG PO ×6 (00:02→23:57)
[2025-01-08] MEDS: TORADOL 10 MG IV ×3 (02:27→19:46)
[2025-01-08] MEDS: ZOSYN 50 IV ×4 (02:27→21:18)
[2025-01-08] MEDS: TYLENOL PO (03:45)
[2025-01-08] MEDS: SYNTHROID 50 MCG PO (05:56)
[2025-01-08 06:00] VITALS: BMI 26.0
--- NOTE | 2025-01-08 06:30 | PTCARENOTE ---
pts colostomy drained 20cc of serous fluid and +gas was burped x2
[2025-01-08 07:57] LABS: Hematocrit 33.6 % (39.0-52.0); Hemoglobin 10.9 g/dL (13.0-18.0); Mean Corp Hgb Conc. 32.4 g/dL (33.0-37.0); Mean Corpuscular Volume 87.7 fL (80.0-94.0); Nucleated Red Blood Cells % 0 % (-); Red Cell Dist. Width 13.5 % (11.5-14.5)
[2025-01-08 08:29] LABS: ALT (SGPT) 17 U/L (0-50); AST (SGOT) 23 U/L (17-59); Albumin 2.6 g/dl (3.5-5.0); Alkaline Phosphatase 64 U/L (38-126); Blood Urea Nitrogen 18 mg/dl (9-20); Calcium 8.2 mg/dl (8.4-10.2); Carbon Dioxide 28 mmol/L (22-30); Chloride 107 mmol/L (98-107); Estimated Creatinine Clearance 62 ml/min; Glucose 81 mg/dl (70-99); Potassium 3.9 mmol/L (3.5-5.1); Sodium 137 mmol/L (135-145); Total Protein 5.3 g/dl (6.3-8.2); eGFR > 60.00
[2025-01-08] MEDS: COREG PO (09:09)
[2025-01-08 09:20] VITALS: BP 127/69
--- NOTE | 2025-01-08 12:57 | W.PN.HOSP.TC ---
Today's Communication/Plan
-
abx
adv diet as per surgery
Assessment / Plan
Assessment / Plan
Physical Exam
General: Comfortable and Conversant; No Pain, Fever or Chills
HEENT: NormoCephalic, Anicteric, Moist mucous membranes, PERRLA, [place] Conjunctivae and No Ptosis
Respiratory: Clear; No Wheezes, Rales or Rhonchi
Cardiac: S1/S2, Regular Rhythm and Other (Defibrillator present left upper chest wall); No Murmur, Rub, Gallop or Peripheral Edema
Breast: Deferred by me
GI: Soft, Non Tender, Non Distended, Normal Bowel Sounds and No Hepatosplenomegaly; colostomy warm and pink, no output yet
Genito-urinary: Deferred by me
Musculoskeletal: No Clubbing, No Cyanosis and No Edema
Skin: Warm and Dry; No Rash or Jaundice
Neuro: AO x 3, No Motor Deficits, Nonfocal/grossly intact, Cranial Nerves Intact and No Sensory Deficits; No Slurred Speech, Facial Droop, Tremors or Sedated
Psych: Calm
#Sepsis
#perforated Diverticulitis with developing abscess along with possible colovesicular fistula
-source probably is 25cm tumor - probable malignant and metastatic
-colorectal surgery recs�flex sig 01/04
-01/05 1. Ned's resection (sigmoidectomy with colostomy) 2. biopsy of left liver lobe nodule 3. cystorrhaphy by Dr. Wood of urology
-ID recs
-Abx
-CLD - Adv to FLD as per Surgery
- Rojas out, passed TOV
-Maintain EMILIA drain until d/c
-Follow CBC, CMP
--Will need eventual eliquis 2.5mg po BID for 30 days on d/c (cancer) as per CRS
� CEA�2.71
#Hepatic lesions concerning for metastasis
�Suspect source is: Due to mass found in the sigmoid colon
� Oncology consulted
� Continue surgical approach for pathological diagnosis
� PET and CT scan outpatient
� Defer liver biopsy at this time as per oncology
� Plan as above
#UTI with cystitis
-possibly 2/2 to fistula
� E. coli
-IV Zosyn
# Defibrillator Medtronic placed 2021 MRI conditional [id number], model [id number]
Hold Entresto, spironolactone
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
#CAD
#History of PVCs
-Follows with [facility]
2D echo 05/14/2023: EF 35-40%, global hypokinesis, dilated left ventricle, septal contractility abnormality, trace aortic regurg, ICD wire present
�Continue Coreg
#Hypothyroidism
-Continue Synthroid 50 mcg p.o. daily
# HTN
Continue Coreg 6.25 mg twice daily with hold parameters
Hold spironolactone 12.5 mg daily
#HLD
Hold atorvastatin 20 mg at bedtime
#DVT ppx- lovenox
#History of PVCs
#Former smoker quit 1999
#Former daily drinker quit 1999
Anticipated Discharge: 24 - 48 hours
Subjective/Interval History
-
Date of Service: January 08, 2025
no acute events, tolerating CLD; stool in appliance
Objective Data
-
Labs:
Laboratory Results
01/08/25
07:18
WBC 9.4
Hgb 10.9 L
Hct 33.6 L
Plt Count
Sodium 137
Potassium 3.9
Chloride 107
Carbon Dioxide 28
BUN 18
Creatinine 1.0
Glucose 81
Calcium 8.2 L
Total Bilirubin 0.5
AST 23
ALT 17
Alkaline Phosphatase 64
Vital Signs:
Vital Signs
Temp Pulse Resp BP Pulse Ox
97.7 F 57 16 127/69 94
01/08/25 09:20 01/08/25 09:20 01/08/25 09:20 01/08/25 09:20 01/08/25 09:20
I&O
01/07/25 01/08/25 01/09/25
06:59 06:59 06:59
Intake Total 2160 / 2160 1200 / 1200
Output Total 1460 / 1460 50 / 50
Balance 700 / 700 1150 / 1150
Review of Systems
-
History Source: Patient
All other systems: Not reviewed unless documented
Data Reviewed
-
CT Scan: Report Reviewed by me
Labs: Labs Reviewed by me
--- NOTE | 2025-01-08 13:55 | W.PN.CRS1 ---
Addendum entered and electronically signed by Syed Wylie MD 01/08/25 18:13:
I saw and examined the patient.
The Spring Encaser's note was reviewed and I agree with the note.
Comment: Stable, pain controlled, faisal PO, OOBTC, ambulating, abd soft, approp ttp, midline wound cdi with matti, stoma functioning, cont current mgmt, dispo planning
Addendum entered and electronically signed by STELLA Cassidy 01/08/25 16:32:
Correction to below. Mr Garsia is POD #3 1) Ned's resection (sigmoidectomy with colostomy) 2) biopsy of left liver lobe nodule (3) cystorrhaphy by Dr. Wood of urology)
Original Note:
Today's Communication / Plan
-
LRD
Assessment/Plan
-
79 yo male with perforated colon cancer with abscess; liver mets now POD#2 1) Ned's resection (sigmoidectomy with colostomy) 2) biopsy of left liver lobe nodule (3) cystorrhaphy by Dr. Wood of urology)
Afebrile, stable vital signs
Leukocytosis resolved
Blood cx with ngtd
Acute on chronic anemia. suspect secondary to hemodilution and expected operative blood losses (acute blood loss anemia)
Tolerating diet, flatus via stoma
Plan:
-Low residue diet
-OOB with PT/OT
-Trend labs, c/w IV Zosyn
-OR pathology pending
-Maintain EMILIA drain until d/c
-c/w IVF until good PO intake
-Continue zosyn in the short term (abscess)
-Pain control: Tyelnol/toradol standing, tramadol/dilaudid PRN
-c/w lovenox for dvt prophylaxis. Teds/scds in place.
-Stoma nurse consulted, pt/family need stoma teaching prior to discharge
-Will need eventual eliquis 2.5mg po BID for 30 days on d/c (cancer)
Anticipate readiness for d/c from surgical standpoint in the next 24-48hourse pending PO tolerance and stoma care/teaching
Subjective Data
Procedure
1) Ned's resection (sigmoidectomy with colostomy) 2) biopsy of left liver lobe nodule (3) cystorrhaphy by Dr. Wood of urology)
Subjective Data
Date of Service: January 08, 2025
Pt seen and examined at bedside with Dr. Wylie. Family present, answered questions. Denies n/v. Tolerating liquids. Denies much discomfort to abdomen.
Objective Data
-
Vital Signs
Temp Pulse Resp BP Pulse Ox
97.7 F 57 16 127/69 94
01/08/25 09:20 01/08/25 09:20 01/08/25 09:20 01/08/25 09:20 01/08/25 09:20
Intake & Output
01/07/25 01/08/25 01/09/25
06:59 06:59 06:59
Intake Total 2160 / 2160 1200 / 1200
Output Total 1460 / 1460 50 / 50
Balance 700 / 700 1150 / 1150
Intake:
Oral fluids 960 / 960 1200 / 1200
IV fluids (Total) 1200 / 1200
Output:
Drain Output (Total) 90 / 50 / 50
Right Abdomen [place]Blankenship 90 / 50 / 50
Urine, Rojas 1370 / 1370
Other:
How many times incontinent 3
MODERATE amount urine
Number of approximated LARGE 1
amounts of urine
Lab Results
01/08/25 07:18
01/08/25 07:18
Physical Exam
-
General: No Acute Distress and AOx3
Abdomen: Soft, Non Distended, Non Tender and Other (colostomy mild edema; warm and pink, some flatus/bowel sweat in appliance)
Skin: Warm and Dry
Incision: Other (midline dressing changed, matti/marylu in place, EMILIA with SSF)
[2025-01-08] MEDS: TORADOL IV (14:21)
[2025-01-08 15:10] VITALS: BP 107/62
[2025-01-08] MEDS: LOVENOX 40 MG SC (17:02)
[2025-01-08] MEDS: COREG 6.25 MG PO (19:47)
[2025-01-08 23:06] VITALS: BP 129/68
--- NOTE | 2025-01-09 00:35 | PTCARENOTE ---
30cc serous fluid drained, burped x1
[2025-01-09] MEDS: TORADOL 10 MG IV ×2 (02:38→08:43)
[2025-01-09] MEDS: ZOSYN 50 IV ×2 (02:42→08:45)
[2025-01-09] MEDS: TYLENOL 650 MG PO ×3 (04:28→12:38)
[2025-01-09] MEDS: SYNTHROID 50 MCG PO (05:50)
[2025-01-09 06:00] VITALS: BMI 26.0
--- NOTE | 2025-01-09 06:12 | PTCARENOTE ---
30cc serosanguineous fluid drained from colostomy and burped x2.
[2025-01-09 07:42] VITALS: BP 133/69
[2025-01-09 07:53] LABS: Hematocrit 32.0 % (39.0-52.0); Hemoglobin 10.4 g/dL (13.0-18.0); Mean Corp Hgb Conc. 32.5 g/dL (33.0-37.0); Mean Corpuscular Volume 89.1 fL (80.0-94.0); Nucleated Red Blood Cells % 0 % (-); Red Cell Dist. Width 13.5 % (11.5-14.5)
[2025-01-09 07:58] LABS: ALT (SGPT) 24 U/L (0-50); AST (SGOT) 33 U/L (17-59); Albumin 2.8 g/dl (3.5-5.0); Alkaline Phosphatase 70 U/L (38-126); Blood Urea Nitrogen 18 mg/dl (9-20); Calcium 8.3 mg/dl (8.4-10.2); Carbon Dioxide 30 mmol/L (22-30); Chloride 107 mmol/L (98-107); Estimated Creatinine Clearance 56 ml/min; Glucose 89 mg/dl (70-99); Potassium 3.9 mmol/L (3.5-5.1); Sodium 138 mmol/L (135-145); Total Protein 5.4 g/dl (6.3-8.2); eGFR > 60.00
[2025-01-09] MEDS: PROTONIX 40 MG PO (08:43)
[2025-01-09] MEDS: COREG PO (08:45)
--- NOTE | 2025-01-09 09:27 | W.PN.ONC2 ---
Today's Communication / Plan
-
OP PET & medical oncology follow up will be arranged upon discharge
Impression
Impression
colon perforation with abscess
sigmoid mass, CEA 2.71
s/p Ned's resection (sigmoidectomy with colostomy), biopsy of left liver lobe nodule 01/05
liver lesion
weight loss
Plan
Plan
will follow for path
abx per ID
Subjective/Objective
Subjective
passing flatus
post op pain mostly HS
ambulating
Vital Signs:
Vital Signs
Temp Pulse Resp BP Pulse Ox
97.8 F 57 18 138/68 98
01/09/25 07:42 01/09/25 08:45 01/09/25 07:42 01/09/25 08:45 01/09/25 07:42
Lab Results:
Laboratory Data
WBC 7.2 10^3/uL (4.8-10.8) 01/09/25 07:06
Hgb 10.4 g/dL (13.0-18.0) L 01/09/25 07:06
Plt Count 10^3/uL (130-400) 01/09/25 07:06
PT Cancelled 01/04/25 17:39
INR Cancelled 01/04/25 17:39
APTT Cancelled 01/04/25 17:39
eGFR > 60.00 01/09/25 07:06
Physical Exam
HEENT: Moist Mucous Membranes; No Jaundice
Pulmonary: Clear
GI: Soft and Other (surgical site with dressing CDI, ostomy )
Extremities: Pulses Present; No Edema
--- NOTE | 2025-01-09 10:13 | W.PN.CRS1 ---
Today's Communication / Plan
-
dc zosyn
EMILIA drain removed
okay for d/c from our perspective
Assessment/Plan
-
79 yo male with perforated colon cancer with abscess; liver mets now POD#2 1) Ned's resection (sigmoidectomy with colostomy) 2) biopsy of left liver lobe nodule (3) cystorrhaphy by Dr. Wood of urology)
Afebrile, vitals normal
WBC: 7.2, Hgb 10.4 (10.9)
Plan:
-Low residue diet
-OOB with PT/OT
-Stop IV Zosyn (4 days completed)
-OR pathology pending
-EMILIA drain discontinued
-Midline wound change, matti removed
-Pain control: Tyelnol/toradol standing, tramadol/dilaudid PRN
-c/w lovenox for dvt prophylaxis. Teds/scds in place.
-Stoma nurse consulted, pt/family need stoma teaching prior to discharge
-Will need eventual eliquis 2.5mg po BID for 30 days on d/c (cancer)
-Okay for discharge from our perspective, our discharge instructions discussed with patient including medications, activity levels, and follow up. All questions addressed.
Subjective Data
Procedure
1) Ned's resection (sigmoidectomy with colostomy) 2) biopsy of left liver lobe nodule (3) cystorrhaphy by Dr. Wood of urology)
Subjective Data
Date of Service: January 09, 2025
Patient states he feels well. He is tolerating a diet. His pain is controlled. Denies nauesa or vomiting. He is urinating without difficulty.
Objective Data
-
Vital Signs
Temp Pulse Resp BP Pulse Ox
97.8 F 57 18 138/68 98
01/09/25 07:42 01/09/25 08:45 01/09/25 07:42 01/09/25 08:45 01/09/25 07:42
Intake & Output
01/08/25 01/09/25 01/10/25
06:59 06:59 06:59
Intake Total 1999 / 1999 820 / 820
Output Total
Balance 1950 / 1950 730 / 730
Intake:
Oral fluids 1200 / 1200 720 / 720
IV fluids (Total) 800 / 800
IV piggybacks 100 / 100
Output:
Drain Output (Total)
Right Abdomen [place]-Blankenship
Other:
How many times incontinent 3
MODERATE amount urine
Number of approximated MODERATE 3
amounts of urine
Number of approximated LARGE 1
amounts of urine
Lab Results
01/09/25 07:06
01/09/25 07:06
Physical Exam
-
General: No Acute Distress and AOx3
Abdomen: Soft, Non Distended, Non Tender and Other (colostomy warm and pink with some serous output in bag. EMILIA drain with serous output. )
Skin: Warm and Dry
Incision: Other (marylu in place, matti removed)
--- NOTE | 2025-01-09 10:54 | CM ---
CM reviewed chart- dc anticipated soon
CM confirmed acceptance and SOC with [facility] liaison for new ostomy
Discussion with WOC and plan for bedside teaching with pt and family
Bedside meeting with pt who confirmed dc plan
IMM verbally reviewed, copy provided
VN order on chart
Discharge Disposition- home with [facility] and new ostomy, family transport
--- NOTE | 2025-01-09 11:19 | W.PN.ID1 ---
Date of Service
Date of Service: January 09, 2025
Today's Communication
Transition to cefuroxime 500mg po bid x 5 more days till 01/13.
ID will sign off.
Assessment / Plan
# Colon cancer with perforated sigmoid
# E. coli UTI
# Leukocytosis - post-op resolved
# Hepatic lesion - likely metastasis
# Weight loss, 6 month h/o GI symptoms passing gas and loose stools
- blood cx's neg to date
- Ucx E. coli
- MRI abd 3.3 x 3.1 cm hepatic lesion suspicious for metastases
- 01/04 s/p Sigmoidoscopy. Per Colorectal found fungating mass on sigmoid.
- 01/05 s/p sigmoidectomy, colostomy. liver biopsy, cystorrhaphy.
OR findings of sigmoid mass plastered to dome of bladder. NO obvious abscess. NO colovesical fistula.
- s/p 7 days of Zosyn.
- Transition to cefuroxime 500mg po bid x 5 more days till 01/13.
ID will sign off.
Conditions present on admission:
Hypothyroidism
Nonischemic cardiomyopathy s/p ICD placement
Dyslipidemia
Vertebral compression fracture
CKD2
Back surgery
Right knee fracture repair
Chief Complaint
-: Other
Subjective / Review of Systems
Doing well. No complaints.
Vital Signs / Physical Exam
Vital Signs
Vital Signs
Temp Pulse Resp BP Pulse Ox
97.8 F 57 18 138/68 98
01/09/25 07:42 01/09/25 08:45 01/09/25 07:42 01/09/25 08:45 01/09/25 07:42
Physical Exam
Constitutional: No Acute Distress and Comfortable
Cardiovascular: Regular Rate and S1/S2
Pulmonary: Clear
Gastrointestinal: Soft, Non Tender, Non Distended and Other (ostomy intact with small amt brown stool)
Genito-Urinary: Negative CVA Tenderness
Extremities: Negative Edema
Neurological: AO x 3
Objective Data
Lab Data
Lab Results
01/09/25 07:06
01/09/25 07:06
PT Cancelled 01/04/25 17:39
INR Cancelled 01/04/25 17:39
APTT Cancelled 01/04/25 17:39
Estimated Creat Clear 56 ml/min 01/09/25 07:06
Lactic Acid 1.1 mmol/L (0.7-2.0) 01/02/25 11:20
Total Bilirubin 0.5 mg/dl (0.2-1.3) 01/09/25 07:06
AST 33 U/L (17-59) 01/09/25 07:06
ALT 24 U/L (0-50) 01/09/25 07:06
Alkaline Phosphatase 70 U/L (38-126) 01/09/25 07:06
C-Reactive Protein 211.80 mg/L (0.0-10.00) H 01/03/25 07:30
Most recent labs reviewed.
Micro Results:
01/02/25 14:24 Blood Culture - Final
Blood/Venous No Growth - Final Report
01/02/25 13:55 Blood Culture - Final
Blood/Venous No Growth - Final Report
01/02/25 10:53 Urine Culture - Final
Urine Escherichia coli
01/02/25 CT a/p: Findings of focally perforated sigmoid diverticulitis with a developing pericolonic abscess measuring up to 4.8 cm. This abscess extends into the superior wall of the urinary bladder and likely represents a developing colovesicular
fistula with findings of cystitis. There are multiple ill-defined, mildly hypodense hepatic lesions which measure up to 2.8 cm in the superior aspect of the right hepatic lobe. Given the above findings of diverticulitis these represent developing
hepatic abscesses, however metastasis are also possible.
[2025-01-09 12:24] VITALS: BP 135/80
[2025-01-09] MEDS: CEFTIN 500 MG PO (12:38)
--- NOTE | 2025-01-09 13:15 | WOUNDNOTE ---
WON RN NOTE: Appliance changed with and daughter at bedside. Stoma pink and budded, peristomal skin intact. 2 3/4' Stefanie 2 piece used, reviewed skin care, emptying, burping and ADL's along with pouch change. Answered all questions, support
and encouragement given. 2 wk additional supplies brought into rm for patient to take upon discharge later today.
--- NOTE | 2025-01-09 15:15 | W.DCSUMMARY ---
Discharge Summary
Discharge Data
Date of Admission: 01/02/25
Date of Discharge: 01/09/25
-
Pending Results: Yes (Colon, Liver biopsy report pending)
Hospital Course
Primary diagnosis:
Perforated colon with abscess- status post 1) Ned's resection (sigmoidectomy with colostomy) 2) biopsy of left liver lobe nodule (3) cystorrhaphy by Dr. Wood of urology)
Colonic mass
Liver lesion s/p BX
Secondary diagnosis:
Chronic heart failure with reduced EF-EF of 35-40%
ICD in place
Hypothyroidism
Primary hypertension
Hospital course:
Patient who never had a colonoscopy presented with 5 to 6 months of diarrhea and also mild intermittent abdominal pains. He had 15 pound weight loss 2. His CT scan on admission showed focally perforated sigmoid diverticulitis with abscess
measuring 4.8 cm abutting the urinary bladder raising concern for colovesical fistula. He also had some dysuria. There is also a mildly hyperdense hepatic lesions measuring 2.5 cm the greatest concerning for an abscess versus met. MRI of the
abdomen showed There is a 3.3 x 3.1 cm peripherally enhancing lesion within the hepatic dome which is concerning for a metastasis. Sigmoidoscopy showed partially obstructing large mass in the sigmoid colon at 25 cm. He was seen by ID initially on
antibiotics and went on to have above procedure. Both the colonic mass and the liver lesions were biopsied in the OR on reports were pending at the time of discharge. He was tolerating a solid diet prior to discharge. He would need 5 more days of
oral antibiotics to finish the course-will switch to cefuroxime on discharge. There is concern for colovesical fistula and is urine culture showing E. coli raising concern for UTI.
Oncology did a consult on him while inpatient and going to follow-up with him as an outpatient regarding need of further adjuvant chemotherapy.
Today he was feeling fine. Tolerating diet without nausea vomiting. Not in pain and not requiring pain medication. He was afebrile. Blood pressure 135/80. His hemoglobin was 10.4. He is advised to resume his oral ferrous sulfate on discharge.
He also has a history of cardiomyopathy with EF of 35 to 40% and was taking Entresto and spironolactone which was resumed at the time of discharge. He was clinically compensated. He has ICD in place.
He was seen by PT OT and recommended home health.
Consultants on board:
Colorectal surgery-Cristóbal Gomez
Infectious disease-Geno Horton
Urology-Herrera Lewis
Portions of this chart may have been created with voice recognition software. Occasional wrong word or 'sound alike' substitutions may have occurred due to the inherent limitations of voice recognition software.
Discharge Plan
-
Patient Disposition: Home with Home Care
Discharge Diagnosis/Procedures: colon perforation with abscess
sigmoid mass, CEA 2.71
s/p Ned's resection (sigmoidectomy with colostomy), biopsy of left liver lobe nodule 01/05
liver lesion
weight loss
Diet: Low Residue
Activity: As tolerated
Additional Activity: No lifting over 10lbs (gallon of milk)
Driving Restrictions: Not until seen by your Dr
Bathing Restrictions: OK to Shower
Other Services: VN, PT and OT
Wound Care: Yuri will be removed at your office appointment with Dr. Linder. Replace midline dressing with gauze and paper tape, daily and as needed. Okay to leave open to air when seals over. Okay to remove to shower. Cover former drain site
with gauze and paper tape daily and as needed. Okay to leave open to air to shower. Okay to leave open to air when sealed over (usually 5 days).
Activity Restrictions/Additional Instructions:
To be used for colostomy
Change appliance q 3-4 days or if leakage
Stefanie wafer # [id number]
[place] pouch # [id number]
Can use [place] ring or paste around stoma if having leakage issues.
Call supply company (list in folder provided) for monthly Ostomy supplies after discharge (ask VN to order supplies while on service).
Follow up with surgeon.
Call [facility] RN nurse for ostomy pouching concerns or leakage problems [phone] or [phone] or [phone].
Referrals:
Cristóbal Linder MD [Active, ColoRectal] - in two weeks
Twin Morales MD [Family Provider, Family Practice] - in less than 1 week
Additional Discharge Medication Instructions: Tylenol or Ibuprofen as needed for pain. Maximum dose of Tylenol is 4,000mg in 24 hours. Maximum dose of Ibuprofen is 3,200mg in 24 hours.
Prescriptions:
New
acetaminophen 325 mg Tablet
650 mg PO Q4HWA Qty: 1 0RF
cefuroxime axetil 500 mg Tablet
500 mg PO BID Qty: 10 0RF
Eliquis 2.5 mg tablet
2.5 mg PO BID 30 Days Qty: 60 0RF
Continued
atorvastatin 20 MG tablet
20 mg PO HS
spironolactone 25 mg Tablet
12.5 mg PO DAILY
sacubitril-valsartan [Entresto] 97-103 mg Tablet
1 tab PO BID
carvedilol [Coreg] 6.25 mg Tablet
6.25 mg PO BID
loperamide 2 mg Tablet
2 mg PO DAILYPRN PRN (Reason: DAIRRHEA)
levothyroxine [Synthroid] 50 mcg Tablet
50 mcg PO DAILY
omeprazole 20 mg Tablet,Delayed Release (Dr/Ec)
20 mg PO Q48H
Changed
ferrous sulfate 325 mg (65 mg iron) Tablet
325 mg PO DAILY Qty: 0 0RF
Discharge Orders:
Discharge Patient (As Directed); Ordered 01/09/25
Ordered By: Carlos A Page
Discharge Date and Time
Discharge Date/Time: 01/09/25 14:52
Print Language: MALTESE
== END 2025-01-09 14:52 | disposition home health service (06) | DRG 853 ==
LOC: 2 SOUTH 15:17
PROVIDERS: Clinical Nurse Specialist Family Health; Physician Assistant; Surgery; ADMITTING PHYSICIAN Hospitalist; ATTENDING PHYSICIAN Internal Medicine; CONSULT PHYSICIAN Internal Medicine Hematology & Oncology; CONSULT PHYSICIAN Internal Medicine Infectious Disease; CONSULT PHYSICIAN Surgery; EMERGENCY PHYSICIAN Emergency Medicine; FAMILY PHYSICIAN Family Medicine
PROC: 0DJD8ZZ Inspection of Lower Intestinal Tract, Via Natural or Artificial Opening Endoscopic (ICD-10-PCS; 2025-01-04)
PROC: 0D1M074 Bypass Descending Colon to Cutaneous with Autologous Tissue Substitute, Open Approach (ICD-10-PCS; 2025-01-05)
PROC: 0TQB0ZZ Repair Bladder, Open Approach (ICD-10-PCS; 2025-01-05)
PROC: 0DTN0ZZ Resection of Sigmoid Colon, Open Approach (ICD-10-PCS; 2025-01-05)
PROC: 0FB20ZX Excision of Left Lobe Liver, Open Approach, Diagnostic (ICD-10-PCS; 2025-01-05)
DX: A41.9 Sepsis, unspecified organism (principal); K65.1 Peritoneal abscess; C18.7 Malignant neoplasm of sigmoid colon; I50.22 Chronic systolic (congestive) heart failure; I13.0 Hypertensive heart and chronic kidney disease with heart failure and stage 1 through stage 4 chronic kidney disease, or unspecified chronic kidney disease; K57.20 Diverticulitis of large intestine with perforation and abscess without bleeding; N32.1 Vesicointestinal fistula; I42.8 Other cardiomyopathies; K56.690 Other partial intestinal obstruction; C78.7 Secondary malignant neoplasm of liver and intrahepatic bile duct; N39.0 Urinary tract infection, site not specified; N18.2 Chronic kidney disease, stage 2 (mild); I25.10 Atherosclerotic heart disease of native coronary artery without angina pectoris; E78.00 Pure hypercholesterolemia, unspecified; R63.4 Abnormal weight loss; D72.829 Elevated white blood cell count, unspecified; E03.9 Hypothyroidism, unspecified; I70.0 Atherosclerosis of aorta; M85.80 Other specified disorders of bone density and structure, unspecified site; K44.9 Diaphragmatic hernia without obstruction or gangrene; K62.1 Rectal polyp; B96.20 Unspecified Escherichia coli [E. coli] as the cause of diseases classified elsewhere; M40.204 Unspecified kyphosis, thoracic region; Z87.891 Personal history of nicotine dependence; Z79.890 Hormone replacement therapy; Z79.899 Other long term (current) drug therapy; Z95.810 Presence of automatic (implantable) cardiac defibrillator
CPT/HCPCS: 71046; 74177; 74183; 80053; 81003; 81015; 82378; 83605; 83735; 84134; 84443; 85025; 86140; 86850; 86900; 86901; 87040; 87086; 87088; 87186; 88307; 88309; 88342; 96365; 97163; 97166; 99285; A9575; Q9967

== ENCOUNTER → 2025-01-12 18:05 | Outpatient (REF) | payer MEDICARE, OTHER, SELFPAY ==
[2025-01-12 18:34] LABS: Hematocrit 34.0 % (39.0-52.0); Hemoglobin 11.2 g/dL (13.0-18.0); Mean Corp Hgb Conc. 32.9 g/dL (33.0-37.0); Mean Corpuscular Volume 89.7 fL (80.0-94.0); Nucleated Red Blood Cells % 0 % (-); Platelet Count 194 10^3/uL (130-400); Red Cell Dist. Width 14.0 % (11.5-14.5)
== END ==
LOC: CLAB 18:05
PROVIDERS: ATTENDING PHYSICIAN Family Medicine
DX: I25.10 Atherosclerotic heart disease of native coronary artery without angina pectoris (principal)
CPT/HCPCS: 36415; 85025

== ENCOUNTER → 2025-02-23 10:22 | Outpatient (REF) | payer OTHER, MEDICARE, SELFPAY ==
[2025-02-23 10:50] VITALS: BP 114/64; BP_SYST 58
[2025-02-23] MEDS: ANCEF 10 IV (11:44)
[2025-02-23 12:40] VITALS: BP 137/96; BP_SYST 66
[2025-02-23 13:01] VITALS: BP 121/81
== END ==
LOC: RADI 10:22
PROVIDERS: ATTENDING PHYSICIAN Internal Medicine Hematology & Oncology; FAMILY PHYSICIAN Family Medicine
DX: C18.7 Malignant neoplasm of sigmoid colon (principal)
CPT/HCPCS: 36561; 76937; 77001; 99152; 99153; C1788